=== PATIENT | female | born 1945 | race Caucasian/White ===

== ENCOUNTER → 2018-02-14 11:37 | Outpatient (CLI) | payer MEDICARE, OTHER, SELFPAY ==
[2018-02-14 12:38] LABS: BUN Creatinine Ratio 15.5 (6-22); Blood Urea Nitrogen 17 mg/dL (7-17); Estimated Glomerular Filt Rate 48.7 mL/min (>60)
== END ==
PROVIDERS: PCP Family Medicine; Visit Provider Orthopaedic Surgery
DX: Z01.812 Encounter for preprocedural laboratory examination (principal)
CPT/HCPCS: 36415; 82565; 84520

== ENCOUNTER → 2018-03-04 11:22 | Outpatient (CLI) | payer MEDICARE, OTHER, SELFPAY ==
[2018-03-04 12:34] LABS: Hematocrit 30.4 % (36-46); Hemoglobin 10.2 g/dL (12.0-16.0); Mean Corpuscular HGB Conc 33.6 % (30-36); Mean Corpuscular Hemoglobin 28.8 PG (26-34); Mean Corpuscular Volume 85.8 fL (80-100); Platelet Count 273 X10^3/uL (150-400); Red Blood Cell Count 3.54 X10^6/uL (4.0-5.2); Red Cell Distribution Width 16.3 % (11.6-14.8); White Blood Cell Count 6.6 X10^3/uL (4.5-11.0)
[2018-03-04 12:50] LABS: BUN Creatinine Ratio 15.8 (6-22); Blood Urea Nitrogen 19 mg/dL (7-17); Calcium 9.8 mg/dL (8.4-10.2); Carbon Dioxide 28 mmol/L (22-32); Chloride 95 mmol/L (98-107); Glucose 95 mg/dL (80-110); HEMOLYSIS < 15 (0-50); Sodium 129 mmol/L (137-145)
[2018-03-04 12:54] LABS: Potassium 5.4 mmol/L (3.4-5.1)
== END ==
PROVIDERS: PCP Family Medicine; Visit Provider Orthopaedic Surgery
DX: Z01.818 Encounter for other preprocedural examination (principal)
CPT/HCPCS: 36415; 80048; 85027

== ENCOUNTER 2018-03-13 13:15 | Day surgery (SDC) | payer MEDICARE, OTHER, SELFPAY ==
[2018-03-10 13:23] VITALS: BMI 22.4
[2018-03-13] VITALS (8 sets, daily range): BP systolic 119–148; BP diastolic 48–74; PULSE 75–93; RESP 12–18; TEMP 36.3–36.6; O2SAT 100; BMI 22.4
--- NOTE | 2018-03-13 | PATH_ITS ---
[facility] Accession Number: [id number] . 01 Material submitted: . L3 . 02 Diagnosis: Bone From Third Lumbar Vertebra: Fragments of benign bone, negative for neoplasm. V/03/17/2018 . 02 Electronically signed: . Joseph Mcnamara MD, Pathologist NPI- [id number] . 01 Gross description: . Received in formalin, labeled L3, are multiple intact and fragmented core biopsies of reyes hard bone (lengths-0.3 cm to 0.8 cm, diameters-up to 2.0 cm). Decalcified and entirely submitted in cassette A1. ([id number]) /[facility] . 02 Pathologist provided ICD-10: S32.039K . 02 CPT . 958872, [id number] Performed at: 01 [facility] [address] [id number] MD Elvin Pantoja MD Phone: [phone] Performed at: 02 [facility] [address] [address] [place], [place] [id number] MD Chris Rashid MD Phone: [phone]
--- NOTE | 2018-03-13 | DI.RAD.S_ITS ---
PROCEDURE: XR LUMBAR SPINE 2-3V INDICATIONS: Back pain. TECHNIQUE: 4 intraoperative fluoroscopic views of the lumbar spine were acquired. COMPARISON: [facility], , -SPINE 2-3 VIEWS, 08/01/2017, 8:29. FINDINGS: Bones: Intraoperative fluoroscopic images of lumbar spine shows injection of what appears to be cement material within L3 vertebral body. Posterior fusion hardware at L4-S1 levels are again seen. Soft tissues: Overlying bowel gas pattern is normal. No suspicious soft tissue calcifications. IMPRESSION: Intraoperative fluoroscopic images show vertebral plasty at L3 level. Dictated by: Maximino Barrientos M.D. on 03/13/2018 at 16:57 Approved by: Maximino Barrientos M.D. on 03/13/2018 at 17:00
[2018-03-13] MEDS: LACTATED RINGERS 1,000 ML 42 ML IV (13:56)
[2018-03-13 14:08] LABS: Blood Urea Nitrogen 18 mg/dL (7-17); Calcium 10.2 mg/dL (8.4-10.2); Carbon Dioxide 24 mmol/L (22-32); Chloride 98 mmol/L (98-107); Estimated Glomerular Filt Rate 54.3 mL/min (>60); Glucose 110 mg/dL (80-110); HEMOLYSIS < 15 (0-50); Potassium 4.9 mmol/L (3.4-5.1); Sodium 130 mmol/L (137-145)
--- NOTE | 2018-03-13 15:39 | PM.PREOP ---
Pre-operative Note Interval Note Pre-op Check: Yes History & Physical Reviewed by Physician and Yes Exam Performed Changes: No
[2018-03-13] MEDS: CEFAZOLIN 2 GM/100 ML FROZ.PIGGY IV (15:57)
--- NOTE | 2018-03-13 16:06 | SUR.OPER ---
Prone on spine table, head in foam head support, padded chest and pelvic supports, gel pad at knees, lower legs supported by pillows; nipples, genitalia and toes free of pressure, arms secured on foam padded arm boards at <90 degrees abduction. Tape over blanket at thigh secured to table.
[2018-03-13] MEDS: BUPIVACAINE 0.25% W/ EPI VIAL 50 ML INJ (16:13)
--- NOTE | 2018-03-13 16:37 | P.OP_ITS ---
Operative Date/Time/Diagnoses Date of procedure: 03/13/18 Time of procedure: 16:36 Pre-op diagnosis: L3 compression fracture Back pain Post-op diagnosis: same Procedure & Clinicians Procedure: L3 kyphoplasty Same procedure as scheduled: Yes Indications: [age] year old female with intractable pain from an L3 compression fracture as well as a family history of multiple myeloma. She had failed conservative management and requested operative intervention. Risks and benefits of surgery were discussed and appropriate consents were obtained. Surgeon: Luis Angel Phan Click Yes if Unassisted: Yes Anesthesia Type: General Operative Notes Findings: Very sclerotic bone Closure Type: primary Specimen(s): other (L3 vertebral biopsy) Estimated Blood Loss (mL): 1 Procedure in detail: The patient was brought to the operating room and intubated on the table. They were then rolled over to the well-padded prone position. Time-out was performed. We confirmed positioning with two fluoroscopy views. The back was prepped and draped in the standard sterile fashion. Preoperative antibiotics were given. Using fluoroscopic guidance, the planned incision site was infiltrated with Marcaine with epinephrine and injected down to the entry site of the left pedicle of L3. A small stab incision was made and we advanced a Jamshiedi needle down the left pedicle into the vertebral body. This was densely sclerotic bone and we had used a mallet to advanced down the pedicle. A bone biopsy was harvested from this and sent to pathology. We tried to advance the D fine osteotome, however it would not open up inside the vertebral body. I then used the drill and again tried the osteotome but would not open further. A separate stab incision was made on the right side after injecting Marcaine. I then went down the L3 pedicle on the right also needing a mallet for the hard sclerotic bone. We harvested another bone biopsy from this and used the drill and then tried opening up the osteotome but it would barely move. We then began injecting the cement. This was done with frequent fluoroscopy imaging. Minimal cement came through the left side and we immediately had high- pressure were backed up and would not advance further. I then went over to the right side injected. This tracked along the undersurface of the endplate but then appeared to come up through into the disc space and we stop injecting. I then redirected my cannula and we drilled to go more inferior and injected a little bit more but it would not advance any cement due to the sclerotic bone. At this point I was satisfied that we had her bone biopsies. I did not think that any further injection would make a difference. Trocars removed. Final x- rays were taken. The wound was cleaned. Steri-Strips and sterile dressing were placed. Patient was rolled over, extubated, and brought to recovery without complications. Complications: none Condition: stable Disposition: PACU Plan for aftercare: Outpatient. Activity as tolerated. Await bone biopsy results.
[2018-03-13] MEDS: MEPERIDINE 50 MG/ML 12.5 MG IV (16:59)
--- NOTE | 2018-03-13 17:01 | SUR.PHASEI ---
c/o shivering medicated per orders. with improvement.
--- NOTE | 2018-03-13 18:14 | SUR.PHASEII ---
[id number] Report received from APOLINAR Ozuna. Pt ambulated from bathroom to wheelchair, gait steady. Denied pain. VS taken. Condition stable. Pt's family member held the discharge instructions.
--- NOTE | 2018-03-13 18:15 | SUR.PHASEII ---
Taken our by varnish melter and Katarina.
== END 2018-03-13 17:32 | disposition home or self-care (01) ==
PROVIDERS: Anesthesiology; PCP Family Medicine; Visit Provider Orthopaedic Surgery
PROC: (CPT 22514; principal; 2018-03-13 15:00)
DX: S32.030G Wedge compression fracture of third lumbar vertebra, subsequent encounter for fracture with delayed healing (principal); M54.9 Dorsalgia, unspecified; S39.012A Strain of muscle, fascia and tendon of lower back, initial encounter; M79.659 Pain in unspecified thigh; M41.9 Scoliosis, unspecified; Z98.1 Arthrodesis status; Z87.891 Personal history of nicotine dependence; Z95.0 Presence of cardiac pacemaker
CPT/HCPCS: 22514; 72100; 76001; 80048; 88305; 88311; C1776; J0330; J0690; J1100; J2175; J2405; J2704; J3010

== ENCOUNTER → 2018-06-09 11:38 | Outpatient (CLI) | payer MEDICARE, OTHER, SELFPAY ==
[2018-06-09 12:24] LABS: Hematocrit 29.8 % (36-46)
[2018-06-09 13:32] LABS: BUN Creatinine Ratio 14.6 (6-22); Blood Urea Nitrogen 19 mg/dL (7-17); Calcium 10.5 mg/dL (8.4-10.2); Carbon Dioxide 26 mmol/L (22-32); Chloride 97 mmol/L (98-107); Estimated Glomerular Filt Rate 40.2 mL/min (>60); Glucose 105 mg/dL (80-110); HEMOLYSIS < 15 (0-50); Sodium 133 mmol/L (137-145)
[2018-06-09 13:36] LABS: Potassium 5.7 mmol/L (3.4-5.1)
[2018-06-09 15:39] LABS: Creatinine Urine Random 70.2 mg/dL; Protein (Total) Urine Random 9 mg/dL (0-12); Protein Creatinine Ratio Urine 0.12 GRAM/24H
[2018-06-12 14:59] LABS: Parathyroid Hormone Int 66 pg/mL (14-64)
== END ==
PROVIDERS: Family Provider Student in an Organized Health Care Education/Training Program; PCP Student in an Organized Health Care Education/Training Program; Visit Provider Orthopaedic Surgery
DX: Z01.818 Encounter for other preprocedural examination (principal); N05.9 Unspecified nephritic syndrome with unspecified morphologic changes; R80.9 Proteinuria, unspecified; D64.9 Anemia, unspecified; N25.81 Secondary hyperparathyroidism of renal origin
CPT/HCPCS: 36415; 80048; 82565; 82570; 83970; 84156; 84520; 85014; 85018

== ENCOUNTER → 2018-06-25 11:54 | Outpatient (CLI) | payer MEDICARE, OTHER, SELFPAY ==
[2018-06-25 12:45] LABS: BUN Creatinine Ratio 17.3 (6-22); Blood Urea Nitrogen 19 mg/dL (7-17); Calcium 9.8 mg/dL (8.4-10.2); Carbon Dioxide 24 mmol/L (22-32); Chloride 95 mmol/L (98-107); Estimated Glomerular Filt Rate 48.7 mL/min (>60); Glucose 105 mg/dL (80-110); HEMOLYSIS < 15 (0-50); Potassium 3.9 mmol/L (3.4-5.1); Sodium 133 mmol/L (137-145)
== END ==
PROVIDERS: Family Provider Student in an Organized Health Care Education/Training Program; PCP Student in an Organized Health Care Education/Training Program; Visit Provider Student in an Organized Health Care Education/Training Program
DX: N05.9 Unspecified nephritic syndrome with unspecified morphologic changes (principal)
CPT/HCPCS: 36415; 80048

== ENCOUNTER → 2018-08-04 10:14 | Outpatient (CLI) | payer MEDICARE, OTHER, SELFPAY ==
[2018-08-04 11:11] LABS: BUN Creatinine Ratio 13.3 (6-22); Blood Urea Nitrogen 16 mg/dL (7-17); Calcium 10.1 mg/dL (8.4-10.2); Carbon Dioxide 26 mmol/L (22-32); Chloride 98 mmol/L (98-107); Cholesterol 147 mg/dL (140-199); Estimated Glomerular Filt Rate 43.9 mL/min (>60); Glucose 103 mg/dL (80-110); HDL Cholesterol 69 mg/dL (40-60); HEMOLYSIS < 15 (0-50); LDL Cholesterol Calculated 61 mg/dL (<100); Potassium 5.1 mmol/L (3.4-5.1); Sodium 134 mmol/L (137-145); Triglycerides 85 mg/dL (35-150)
== END ==
PROVIDERS: Family Provider Student in an Organized Health Care Education/Training Program; PCP Student in an Organized Health Care Education/Training Program; Visit Provider Internal Medicine Interventional Cardiology
DX: I25.2 Old myocardial infarction (principal); E78.5 Hyperlipidemia, unspecified; I77.89 Other specified disorders of arteries and arterioles
CPT/HCPCS: 36415; 80048; 80061

== ENCOUNTER 2018-10-02 09:34 | Inpatient (IN) | payer MEDICARE, OTHER, SELFPAY ==
[2018-09-26 13:57] VITALS: BMI 20.1
[2018-10-02] VITALS (14 sets, daily range): BP systolic 111–138; BP diastolic 53–71; PULSE 76–89; RESP 15–17; TEMP 35.7–36.2; O2SAT 97–100; BMI 20.1
--- NOTE | 2018-10-02 | DI.RAD.S_ITS ---
PROCEDURE: XR LUMBAR SPINE MIN 4V INDICATIONS: L2-3, L3-4 XLIF L1 KYPHOPLASTY TECHNIQUE: 4 views of the lumbar spine were acquired. COMPARISON: [facility], CT, CT ABDOMEN PELVIS WITH CONTRAST, 09/10/2018, 10:12. [facility], CR, XR LUMBAR SPINE 2 OR 3 VIEWS, 06/02/2018, 8:42. [facility], CR, XR LUMBAR SPINE 2-3V, 03/13/2018, 15:09. [facility], CR, L-SPINE 2-3 VIEWS, 08/01/2017, 8:29. FINDINGS: Bones: Previously there appeared to have been transverse pedicle screws and vertical fixation rods spanning L4-S1. A prior vertebroplasty procedure has been documented. The current examination shows no vertebroplasty at L1, and transverse pedicle screws with vertical fixation rods crossing from L2-L5. An interbody disc prosthesis is seen at L5-S1, as was previously the case Soft tissues: Overlying bowel gas pattern is normal. No suspicious soft tissue calcifications. Oblique images: No pars defects. IMPRESSION: L1 kyphoplasty bone cement in place as a new finding. Revision as discussed above prior posterior spine fusion procedure. A previously present cage intervertebral L5-S1 disc prosthesis is again noted. No intervening disc prosthesis devices appear to have been placed at L2-3, L3-4, and L4-5. Dictated by: Tanner Rosales M.D. on 10/02/2018 at 17:17 Approved by: Tanner Rosales M.D. on 10/02/2018 at 17:25
[2018-10-02] MEDS: LACTATED RINGERS 1,000 ML 42 ML IV ×2 (10:20→14:48)
--- NOTE | 2018-10-02 11:09 | PM.PREOP ---
Pre-operative Note Interval Note History & Physical reviewed/Exam performed by Physician: Yes Changes to H&P: No
--- NOTE | 2018-10-02 12:26 | P.OP_ITS ---
Operative Date/Time/Diagnoses Date of procedure: 10/02/18 Time of procedure: 16:22 Pre-op diagnosis: Lumbar stenosis with radiculopathy Lumbar spondylolisthesis Post-op diagnosis: same Procedure & Clinicians Procedure: L2-3, L3-4 anterior fusion with cages L2-3, L3-4 posterior fusion. L2-4 posterior instrumentation placement iliac crest bone graft aspirate L3-4 left-sided laminectomy L1 kyphoplasty use of microscope placement of epidural catheter Same procedure as scheduled: Yes Indications: 73 year old female with intractable pain from progressive stenosis. They had failed conservative management and requested operative intervention. Risks and benefits of surgery were discussed and appropriate consents were obtained. Surgeon: Luis Angel Phan District Plant Supervisor: Radha Cabrales Anesthesia Type: General Operative Notes Findings: none Closure Type: primary Specimen(s): none sent Prosthetic devices, grafts, tissues, transplants, or devices: NuVasive XLIF cages and MAS Precept screws Estimated Blood Loss (mL): 20 Procedure in detail: Patient was brought to the operating room and intubated on the table. Time-out was performed. They were then rolled over to the lateral decubitus position with the [id number]. The table was bent and they were taped down in the correct position. X-rays were taken to confirm a true AP and lateral. Preoperative antibiotics were given. The left flank was prepped and draped in standard sterile fashion. Using fluoroscopy, a 3 cm incision was made above the iliac crest. We bluntly dissected down with Metzenbaum scissors and split the 3 abdominal muscle layers. We dissected out the retroperitoneal space and using finger guidance, brought our 1st dilator down to the psoas muscle. Using neuromonitoring and fluoroscopy, we placed it through the psoas onto the L3-4 disc space in an anterior position and gradually pulled the dilator posteriorly along the disc space. We placed our guidewire and measured our depth for the retractor. We then dilated with the next 2 dilators and then placed our retractor over the dilators. Position was confirmed with fluoroscopy and the retractor was locked down to the bar. We opened up the retractor and checked with neuro monitoring. We then placed the mary beth and again checked with neuro monitoring. The retractor was opened further and the ALL retractor was placed. An annulotomy was performed. We then performed a complete diskectomy with ring curette, pituitary, box osteotome. A Khan was advanced across the disc space under fluoroscopy to release the lateral annulus on the opposite side. We then used sequentially larger trials and confirmed under fluoroscopy. An XLIF cage was packed with Osteocel bone graft and impacted into the L3-4 disc space with fluoroscopy for the anterior fusion at this level. The wound was irrigated. The retractor was closed down. The mary beth was removed. We carefully removed the retractor with direct visualization to make sure there was no neurovascular or abdominal injury. We then went up to the L2-3 space. Again we used dilators and fluoroscopy to find our safe position. We placed our retractor and opened up. We performed an annulotomy. We passed the Khan elevator across and released the lateral annulus. We had used the offset instrumentation for this angled level and were pushing up against her inferior rib most of the time. We used the box osteotome to go across the disc space. The patient had a layer of kyphoplasty cement in the disc space from bony leakage and extravasation at her previous kyphoplasty. We rolled a break this up with the box osteotome and then could r emove some of it with the pituitaries but could not get all the way across where it clumped together. I felt that we could just leave this there. We then trialed and placed our next cage packed with bone graft for the anterior fusion at L2-3. The retractor was carefully removed with direct visualization. Final x-rays were taken. The muscle fascia was closed, superficial tissue was closed. The skin was closed. Sterile dressing was placed. The patient was then rolled over on the well-padded prone position on the Justin table. Using fluoroscopy for localization, we opened up her 2 previous incisions and extended them 4 cm cephalad. We dissected a muscle-splitting approach and came down to her previous hardware. The old set screws and rods were removed. We also removed the S1 screws bilaterally. We dissected through the soft tissue and expose the facet joints at L3-4, L2-3 and the lateral aspect of it at L1-2. We cleared off the transverse processes of L2, L3, and L4. These were decorticated with a bur. We then used fluoroscopy and neuro monitoring to place our screws on the left side. We percutaneously placed a Jamshidi needle down the left pedicles of L2 and L3. These were swapped out to guidewires, tapped and then the screws were placed over the guidewires. We cleared medially and exposed the L3 lamina on the left side. We then brought in the microscope. A laminectomy was performed at L3-4 on the left with a bur and Kerrison rongeurs. We carefully depressed the dura to reach to the opposite side and decompress the entire central canal. We cleared out th e neural foramen. This included a partial facetectomy. In the end the ball probe could be placed cephalad and caudally across to the opposite side in the foramen and everything was opened. The wound was copiously irrigated. We then measured a maksim and locked it down from L2 through L5. A small stab incision was made over the PSIS and a Jamshidi needle was placed into the iliac crest and several mL of bone marrow was aspirated. This was mixed with our locally harvested bone graft as well as the remaining Osteocel and placed in the posterolateral gutter for fusion at L2-3 and L3-4. The fascia was then closed. The epidural was then injected without resistance. An epidural catheter was primed with 4mL of 0.5% bupivacaine, 100 mcg fentanyl, 4 mg Duramorph, 1 mg Stadol. The dura was depressed under the cephalad lamina with a ball probe and the epidural catheter was gently advanced 6 cm cephalad. The catheter was pulled and we closed more over the fascia. We then went over to the right-hand side. We percutaneously placed our Jamshidi needles, guidewires, tapped and then placed our screws at L2 and L3 under fluoroscopic guidance with neuro monitoring. A maksim was placed from L2 through L5 and locked down. The wound was irrigated and the fascia was closed. We then began our kyphoplasty at L1. This was a prophylactic kyphoplasty as the patient is at a very high risk for proximal junctional kyphosis as shown previously with an adjacent L3 compression fracture above her previous fusion from L3 L4 through S1. We then used fluoroscopy to make a small stab incision over the right L1 pedicle. A Jamshidi needle was advanced down the pedicle under fluoroscopic guidance. We then placed the D-Fine osteotome and opened it up and created a void inside the vertebral body going past the midline. We then began injecting our cement under fluoroscopic guidance. Once we had good fill of the L1 vertebral body, the trocar was removed and final x-rays were taken. Vancomycin powder was placed in the wounds. The superficial and skin were closed. Sterile dressing was placed. The patient was then rolled over, extubated, brought to the recovery room with no complications. Complications: none Condition: stable Disposition: PACU Plan for aftercare: Inpatient. Up with physical therapy.
[2018-10-02] MEDS: CEFAZOLIN 2 GM/100 ML FROZ.PIGGY IV ×2 (12:30→20:54)
--- NOTE | 2018-10-02 13:16 | SUR.OPER ---
Position 1: Right lateral on padded OR table. Head on pillow, gel axillary roll, pillow to support left arm. Legs flexed, pillows between legs, gel pad under down leg and ankle. Multiple passes of 3 inch cloth tape across shoulder, hip, upper and lower legs to secure patient on OR table. Position 2: Prone on spine table, head in foam head support, padded chest and pelvic supports, gel pad at knees, lower legs supported by pillows; nipples, genitalia and toes free of pressure, arms secured on foam padded arm boards at <90 degrees abduction. Tape over blanket at thigh secured to table.
[2018-10-02] MEDS: SODIUM CHLORIDE 0.9% 1,000 ML, GENTAMICIN 80 MG IRR (13:28)
[2018-10-02] MEDS: VANCOMYCIN 1,000 MG VIAL 1000 MG TOP (13:30)
[2018-10-02] MEDS: THROMBIN (BOVINE) 5,000 UNIT VIAL 5000 UNIT TOP (13:30)
[2018-10-02] MEDS: BUPIVACAINE 0.5% (PF) 4 ML, MORPHINE-PF 4 MG, BUTORPHANOL 1 MG, fentaNYL 100 MCG INJ (13:31)
[2018-10-02] MEDS: HYDROMORPHONE 2 MG INJ 0.5 MG IV ×8 (17:13→17:55)
[2018-10-02] MEDS: HYDROMORPHONE 1 MG INJ 0.5 MG IV (20:37)
[2018-10-02] MEDS: DOCUSATE 100 MG CAPSULE PO (20:38)
[2018-10-02] MEDS: LACTATED RINGERS 1,000 ML 125 ML IV (20:38)
[2018-10-02] MEDS: METOPROLOL IR 50 MG TABLET PO (20:38)
[2018-10-02] MEDS: CELECOXIB 200 MG CAPSULE 400 MG PO (20:39)
[2018-10-02] MEDS: SENNOSIDES 8.6 MG TABLET 17.2 MG PO (20:39)
[2018-10-02] MEDS: AMLODIPINE 5 MG TABLET 10 MG PO (20:41)
[2018-10-02] MEDS: ATORVASTATIN 20 MG TABLET PO (20:41)
[2018-10-02] MEDS: OXYCODONE IR 5 MG TABLET 10 MG PO (23:19)
[2018-10-02] MEDS: POLYVINYL ALCOHOL DROPS 1 DROPS EYE-BOTH (23:20)
[2018-10-03] VITALS (7 sets, daily range): BP systolic 99–124; BP diastolic 41–55; PULSE 61–79; RESP 14–18; TEMP 36.3–36.7; O2SAT 96–100
[2018-10-03] MEDS: LACTATED RINGERS 1,000 ML 125 ML IV (02:17)
[2018-10-03] MEDS: OXYCODONE IR 5 MG TABLET 10 MG PO ×6 (02:18→20:49)
[2018-10-03] MEDS: CEFAZOLIN 2 GM/100 ML FROZ.PIGGY IV (04:51)
[2018-10-03] MEDS: PANTOPRAZOLE 40 MG TABLET PO (05:40)
[2018-10-03 06:24] LABS: Hematocrit 31.7 % (36-46); Hemoglobin 10.5 g/dL (12.0-16.0)
[2018-10-03 06:38] LABS: BUN Creatinine Ratio 15.7 (6-22); Blood Urea Nitrogen 11 mg/dL (7-17); Calcium 9.2 mg/dL (8.4-10.2); Carbon Dioxide 25 mmol/L (22-32); Chloride 96 mmol/L (98-107); Estimated Glomerular Filt Rate > 60.0 mL/min (>60); Glucose 156 mg/dL (80-110); HEMOLYSIS < 15 (0-50); Potassium 3.9 mmol/L (3.4-5.1); Sodium 129 mmol/L (137-145)
--- NOTE | 2018-10-03 08:04 | PM.PNPO.1 ---
Subjective Date Patient Seen: 10/03/18 Time Patient Seen: 08:04 Interval history: Pain is a 2 at rest. However much more noticeable with moving. Still in the back and into the lateral left thigh. Exam Vital Signs (past 8 hours): - 10/03/18 00:25 10/03/18 04:59 Pulse Rate 79 72 Respiratory Rate 16 14 Blood Pressure 115/55 L 111/53 L Pulse Oximetry 100 100 Oxygen Delivery Method Room Air Oxygen Flow Rate 0 Const Orientation: alert and oriented x3 Back/Spine/Pelvis Other: CDI. 5/5 motor both lower extremities Objective Labs Result Diagrams: 10/03/18 05:31 10/03/18 05:31 Labs: Laboratory Results - last 24 hr 10/03/18 10/03/18 05:31 05:31 Hgb 10.5 L Hct 31.7 L Sodium 129 L Potassium 3.9 Chloride 96 L Carbon Dioxide 25 BUN 11 Creatinine 0.70 Estimated GFR > 60.0 BUN/Creatinine Ratio 15.7 Glucose 156 H Calcium 9.2 Assessment & Plan Post-op Postoperative Procedures Operation Date: 10/02/18 11:15 Actual Procedures Side Surgeon p L2-3,L3-4 Anterior/Posterior Instru. fusion & bone graft, Left L3-4 Laminectomy & Discectomy Luis Angel Phan MD s L1 Kyphoplasty Luis Angel Phan MD stable postoperative day 1 after anterior-posterior fusion and laminectomy. Mobilize with physical therapy. Quality VTE Deep Vein Thrombosis/Pulmonary Embolism Present on Admission: No
[2018-10-03] MEDS: hydrOXYzine pamoate 25 MG CAPSULE PO ×4 (08:53→21:43)
[2018-10-03] MEDS: FUROSEMIDE 20 MG TABLET PO (08:54)
[2018-10-03] MEDS: METOPROLOL IR 50 MG TABLET PO ×2 (08:54→20:51)
[2018-10-03] MEDS: MULTIVITAMIN 1 TABLET 1 TAB PO (08:54)
[2018-10-03] MEDS: DOCUSATE 100 MG CAPSULE PO ×2 (08:54→20:52)
[2018-10-03] MEDS: ASPIRIN EC 81 MG TABLET PO (08:57)
--- NOTE | 2018-10-03 11:58 | OT.IP.EVAL ---
Current Diagnoses Scoliosis, unspecified (10/02/18) Intervertebral disc disorders with radiculopathy, lumbar region (10/02/18) Wedge compression fracture of third lumbar vertebra, subsequent encounter for fracture with delayed healing (10/02/18) Arthrodesis status (10/02/18) Surgery Performed Operation Date: 10/02/18 11:15 Actual Procedures p L2-3,L3-4 Anterior/Posterior Instru. fusion & bone graft, Left L3-4 Laminectomy & Discectomy - Luis Angel Phan MD s L1 Kyphoplasty - Luis Angel Phan MD Past Medical History (Last Updated 03/10/18 @ 13:38 by Nanda Morris, RN) CKD (chronic kidney disease), stage III (Acute) Generalized headaches (Acute) Hyponatremia (Acute) Iron deficiency anemia (Acute) Coronary artery disease (Chronic Unknown) GERD (gastroesophageal reflux disease) (Chronic Unknown) History of anemia (Chronic Unknown) Hyperlipemia (Chronic Unknown) Hypertension (Chronic Unknown) Osteoporosis (Chronic Unknown) Pacemaker (Chronic ~2015) Scoliosis (Chronic Unknown) Shingles (herpes zoster) polyneuropathy (Chronic Unknown) Spinal stenosis (Chronic Unknown) History of GI bleed (Resolved Unknown) Hx of fracture of arm (Resolved Unknown) Hx of myocardial infarction (Resolved 2005) Lymphoma (Resolved 1992) Surgical History (Last Updated 09/26/18 @ 14:12 by Nanda Morris, RN) History of lumbar surgery (Acute ~07/2017) Hx of kyphoplasty (Acute 03/13/18) History of abdominal surgery (Resolved 1991) History of back surgery (Resolved Unknown) History of lumpectomy of right breast (Resolved 1991) Hx of cataract surgery (Resolved 2005) Hx of hysterectomy (Resolved Unknown) Hx of partial mastectomy (Resolved Unknown) Occupational Therapy Inpatient Evaluation/Re-Eval M1 PT/OT-IP Prior Functional Status Start: 10/03/18 09:20 Freq: NEEDED Status: Active Protocol: Document 10/03/18 11:27 [facility] (Rec: 10/03/18 11:58 [facility] [id number]) Medical Review Prior Functional Status Medical History Reviewed Yes Diet/Fluid Consistency Regular Thin Liquids Communication Independent Mobility and Gait Pt stated use of FWW with 4 wheels at night due to unsteady on her feet otherwise holds to objects or meade. At times, pt states holds to daughter's arm at times. Activities of Daily Living and IADL's Pt states able to do all with increased time. Pt's daughter recently having to assist with grocery shopping, IADL's, and medical appointments. Social History Household Members none Living Arrangements House Number of Floors (Floors) Two Floors Number of Stairs To Enter/Railing? 3 stairs, bilateral rails with wide rails, only able to reach one side at a time. Home Environment Standard Height Toilet Walk in Shower Home Equipment Front Wheel Walker Shower Seat without Backrest Employment Status Retired Additional Social History Comment Pt adult daughter lives next door and daughter from [place] coming to assist and stay with her on Saturday through Saturday. Pt also states that she has cousins that can assist/stay as well and therefore always have someone available if needed. M2 OT-IP Current Condition Start: 10/03/18 09:20 Freq: Status: Active Protocol: Document 10/03/18 11:27 [facility] (Rec: 10/03/18 11:58 [facility] [id number]) Occupational Therapy Current Condition Current Condition Evaluation Date 10/03/18 Treatment Diagnosis Lumbar stenosis Diagnosis Onset Date 10/02/18 Post Operative Precautions Lumbar Precautions Log Roll No Twisting Limit Bending Lifting Restriction of 10 lbs Gait Belt above Incisional Area Weight Bearing Status Weight Bearing Status Weight Bear as Tolerated M3 OT- IP Subjective and Pain Start: 10/03/18 09:20 Freq: Status: Active Protocol: Document 10/03/18 11:27 [facility] (Rec: 10/03/18 11:58 [facility] [id number]) OT- Subjective Occupational Therapy Visit Type Type Initial Evaluation Visit Start Time 09:15 Visit Stop Time 10:10 Total Visit Minutes 55 Occupational Therapy Visit Comments Patient Comments Pt agreeable to get up. OT Pain Assessment Pain When Pain Assessed During Mobility Pain Present Pain Present Pain Reported Location Lower Back Intensity 3 Scale Used Numeric (1 - 10) M4 OT- IP ADL's Start: 10/03/18 09:20 Freq: Status: Active Protocol: Document 10/03/18 11:27 [facility] (Rec: 10/03/18 11:58 [facility] [id number]) OT ADL-Dressing General Eval Lower Body Dressing Ability Maximum Assistance Comments OT Dressing Comments Assist for compression stocking and lace up shoes. OT ADL-Toileting Comments OT Toileting Comments Pt still has catheter in. M5 OT- IP IADL's Start: 10/03/18 09:20 Freq: Status: Active Protocol: Document 10/03/18 11:27 [facility] (Rec: 10/03/18 11:58 [facility] [id number]) OT-Instrumental Activities of Daily Living Home Safety Awareness Home Safety Comments Pt states will have family assist to for all IADL needs. M6 OT- IP Functional Cognition Start: 10/03/18 09:20 Freq: Status: Active Protocol: Document 10/03/18 11:27 [facility] (Rec: 10/03/18 11:58 [facility] [id number]) Cognitive Factors Limiting Selfcare Function Cognitive Ability Level of Alertness Alert Patient Orientation Name Place Situation Attention Span Ability Capable of Focused Attention Capable of Sustained Attention Ability to Follow Commands Able to Follow One Step Commands Safety Awareness Underestimates Need for Assistance Cognitive Comments Cognitive Assessment Comments Pt not able to recall all back precautions, after education able to recall all back precautions. OT- Vision and Hearing OT- Hearing Assessment OT- Hearing Assessment WFL OT- Vision Assessment Visual Acuity WFL M7 OT- IP Mobility and Balance Start: 10/03/18 09:20 Freq: Status: Active Protocol: Document 10/03/18 11:27 [facility] (Rec: 10/03/18 11:58 [facility] [id number]) OT- Bed Mobility Assessment Rolling Type of Rolling Roll to Left Level of Assistance Minimal Assistance Bedrails Supine to Sit Supine to Sit Assist Minimal Assistance Scooting Scooting to Edge of Bed Minimal Assistance OT-Transfer Assessment Sit to and From Stand Sit to and from Stand Minimal Assistance Transfers Transfer Ability Minimal Assistance Technique Transfer Destination Chair Transfer Technique Stand Step Pivot Devices Transfer Assistive Devices Gait Belt Front Wheeled Walker Comments Mobility Comments Pt STEPHANIA to help from sit to stand and cues to push up from and bed and recliner to stand to FWW. Pt BP 127/54 supine, sitting 113/51, after transfer 101/45 and now sitting 113/47 . OT- Balance Assessment Sitting Balance and Reactions Static Sitting Balance Ability Normal Dynamic Sitting Balance Ability Good Standing Balance and Reactions Static Standing Balance Ability Good M8 OT- IP Objective Assessments Start: 10/03/18 09:20 Freq: Status: Active Protocol: Document 10/03/18 11:27 [facility] (Rec: 10/03/18 11:58 [facility] [id number]) OT Gross Range of Motion Upper Extremity Range of Motion Assessment Within Functional Limits OT-Muscle Tone Assessment Muscle Tone WNL Yes M9 OT- IP Assessment and Plan Start: 10/03/18 09:20 Freq: Status: Active Protocol: Document 10/03/18 11:27 [facility] (Rec: 10/03/18 11:58 [facility] [id number]) OT Summary Assessment and Plan Potential Rehabilitation Potential Good Analytic Complexity at Evaluation Low Summary OT Impairments Pain Strength Balance Functional Mobility Dressing Toileting Bathing Toilet Transfers Shower Transfers Progress Towards Goals Progressing Toward Goals Assessment Summary Pt low complexity and main barrier is steps and now needing assist for LB dressing as wears compression stocking and lace up shoes. Pt has supportive family that can stay with her and provide 24/7 assist if needed. Pt when medically stable suggested to go home with assist. Goals Grooming Goal Independent Dressing Goal Moderate Assistance Toileting Goal Standby Assistance Bathing Goal Contact Guard Assistance Toilet Transfer Goal Independent Shower Transfer Goal Contact Guard Assistance Patient/Caregiver Education Goal Demonstrate Post-Op Precautions Caregiver Independent Assisting Patient Days to Meet Goals 4 Frequency of Treatment Frequency Of Treatment Once a Day Treatment Plan OT Treatment Plan ADL Training Functional Mobility Patient/Family Education Discharge Planning Other Treatment Recommendations and Next Practice LB dressing and Treatment Focus shower if appropriate. 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
--- NOTE | 2018-10-03 12:02 | PT.IIE ---
Current Diagnoses Scoliosis, unspecified (10/02/18) Intervertebral disc disorders with radiculopathy, lumbar region (10/02/18) Wedge compression fracture of third lumbar vertebra, subsequent encounter for fracture with delayed healing (10/02/18) Arthrodesis status (10/02/18) Surgery Performed Operation Date: 10/02/18 11:15 Actual Procedures p L2-3,L3-4 Anterior/Posterior Instru. fusion & bone graft, Left L3-4 Laminectomy & Discectomy - Luis Angel Phan MD s L1 Kyphoplasty - Luis Angel Phan MD Surgical History (Last Updated 09/26/18 @ 14:12 by Nanda Morris, RN) History of lumbar surgery (Acute ~07/2017) Hx of kyphoplasty (Acute 03/13/18) History of abdominal surgery (Resolved 1991) History of back surgery (Resolved Unknown) History of lumpectomy of right breast (Resolved 1991) Hx of cataract surgery (Resolved 2005) Hx of hysterectomy (Resolved Unknown) Hx of partial mastectomy (Resolved Unknown) Medical History (Last Updated 03/10/18 @ 13:38 by Nanda Morris, RN) CKD (chronic kidney disease), stage III (Acute) Generalized headaches (Acute) Hyponatremia (Acute) Iron deficiency anemia (Acute) Coronary artery disease (Chronic Unknown) GERD (gastroesophageal reflux disease) (Chronic Unknown) History of anemia (Chronic Unknown) Hyperlipemia (Chronic Unknown) Hypertension (Chronic Unknown) Osteoporosis (Chronic Unknown) Pacemaker (Chronic ~2016) Scoliosis (Chronic Unknown) Shingles (herpes zoster) polyneuropathy (Chronic Unknown) Spinal stenosis (Chronic Unknown) History of GI bleed (Resolved Unknown) Hx of fracture of arm (Resolved Unknown) Hx of myocardial infarction (Resolved 2005) Lymphoma (Resolved 1992) Physical Therapy Inpatient Evaluation/Re-Eval M1 PT/OT-IP Prior Functional Status Start: 10/03/18 09:20 Freq: NEEDED Status: Active Protocol: Document 10/03/18 11:27 [facility] (Rec: 10/03/18 11:58 [facility] [id number]) Medical Review Prior Functional Status Medical History Reviewed Yes Diet/Fluid Consistency Regular Thin Liquids Communication Independent Mobility and Gait Pt stated use of FWW with 4 wheels at night due to unsteady on her feet otherwise holds to objects or meade. At times, pt states holds to daughter's arm at times. Activities of Daily Living and IADL's Pt states able to do all with increased time. Pt's daughter recently having to assist with grocery shopping, IADL's, and medical appointments. Social History Household Members none Living Arrangements House Number of Floors (Floors) Two Floors Number of Stairs To Enter/Railing? 3 stairs, bilateral rails with wide rails, only able to reach one side at a time. Home Environment Standard Height Toilet Walk in Shower Home Equipment Front Wheel Walker Shower Seat without Backrest Employment Status Retired Additional Social History Comment Pt adult daughter lives next door and daughter from [place] coming to assist and stay with her on Saturday through Saturday. Pt also states that she has cousins that can assist/stay as well and therefore always have someone available if needed. M1 PT/OT-IP Prior Functional Status Start: 10/03/18 11:38 Freq: NEEDED Status: Active Protocol: Document 10/03/18 10:20 [facility] (Rec: 10/03/18 12:02 [id number]) M2 PT-IP Current Condition Start: 10/03/18 11:38 Freq: NEEDED Status: Active Protocol: Document 10/03/18 10:20 [facility] (Rec: 10/03/18 12:02 [id number]) Physical Therapy Current Condition Current Condition Evaluation Date 10/03/18 Treatment Diagnosis L2-L4 ant/post instru.fusion, bone graft, impaired gait, muscle weakness Onset Date 10/02/18 Precautions Lumbar Precautions Log Roll No Twisting Limit Bending Lifting Restriction of 10 lbs Gait Belt above Incisional Area Weight Bearing Status Weight Bearing Status Weight Bear as Tolerated M3 PT-IP Subjective Start: 10/03/18 11:38 Freq: NEEDED Status: Active Protocol: Document 10/03/18 10:20 [facility] (Rec: 10/03/18 12:02 [email or web address]) Subjective Physical Therapy Visit Type Type Initial Evaluation Visit Start Time 10:20 Visit Stop Time 10:50 Total Visit Minutes 30 Notes Pt just finished with OT session and c/o nausea. B compression stockings on B LEs Number of PERIOPERATIVE EDUCATOR Visits 0 Physical Therapy Visit Comments Patient Comments Pt agreeable to mobilize with PT Patient Goals To return home Therapy Pain Assessment Pain Present Pain Present Denied Pain M4 PT-IP Mobility and Gait Start: 10/03/18 11:38 Freq: NEEDED Status: Active Protocol: Document 10/03/18 10:20 (Rec: 10/03/18 12:02 [id number]) PT-Transfer Assessment Sit to and From Stand Sit to and from Stand Minimal Assistance Use of Upper Extremities Equipment Transfer Assistive Device Gait Belt Front Wheeled Walker Orthotic/Prosthetic Devices or Brace: No Transfers Transfer Destination Bed Chair Transfer Technique Stand Step Pivot Transfer Ability Level of Assist Contact Guard Assistance 1 Person Assistance Use of Upper Extremities Comments Mobility Comments BP before session= 114/80 post session = 118/62 Pt up in chair upon assessment . Pt stood up from bedside low chair with CGA and required cues to place hands on chair to push off. She returned to chair after gait training and able to use hip hinge pattern to stand to sit. Gait Assessment Gait Gait Assistance Required: Contact Guard Assist Distance (Feet) 150 Able to Maintain Weight Bearing Status Yes During Gait Assistive Devices Assistive Device Gait Belt Front Wheeled Walker Orthotic/Prosthetic Devices or Brace: No Gait Deviations General Gait Pattern Decreased Stride Length Decreased Feet Clearance Flexed Trunk Factors Limiting Gait Function Factors Limiting Gait Function Decreased Activity Tolerance Decreased Strength Limited Range of Motion Pain Comments Gait Comments Pt amb from bedside chair to hallway with FWW CGA. Pt presented decreased feet clearance and stride length, along with slight flexed knee and trunk posture. Required cues to facilitate upright posture. Pt also c/o slight fatigue and requested to return to chair for rest. Stair Climbing Assessment Comments Stair Climbing Comments did not attempt due to fatigue PT-Balance Assessment Sitting Balance and Reactions Static Sitting Balance Ability Normal Dynamic Sitting Balance Ability Normal Standing Balance and Reactions Static Standing Balance Ability Good Dynamic Standing Balance Ability Fair Device Used FWW M5 PT-IP Objective Assessments Start: 10/03/18 11:38 Freq: NEEDED Status: Active Protocol: Document 10/03/18 10:20 (Rec: 10/03/18 12:02 [id number]) Orientation Orientation/Cognition Level of Alertness Alert Orientation Name Age Birthday Month Date Year Day of Week Place Situation Language Function Ability No Deficits Noted Safety Awareness Understands Safety Issues Memory Description No Deficits Noted Gross Range of Motion Upper Extremity ROM Assessment Within Functional Limits Lower Extremity ROM Assessment Within Functional Limits Strength Upper Extremity Strength Assessment Within Functional Limits Lower Extremity Strength Assessment Within Functional Limits Coordination Assessment Gross Coordination Gross Coordination WNL Sensation Assessment Sensation Gross Sensation WNL Light Touch Intact Proprioception (Position) Intact Muscle Tone Muscle Tone WNL Yes M6 PT-IP Treatment Start: 10/03/18 11:38 Freq: NEEDED Status: Active Protocol: Document 10/03/18 10:20 [facility] (Rec: 10/03/18 12:02 [facility] [id number]) Physical Therapy Treatment Exercises Exercises Ankle Pumps Gluteal Sets Quad Sets Education Education Provided Precautions Weight Bearing Status Post-Op Packet Safety M7 PT-IP Assessment and Plan Start: 10/03/18 11:38 Freq: NEEDED Status: Active Protocol: Document 10/03/18 10:20 [facility] (Rec: 10/03/18 12:02 [id number]) PT Summary Assessment and Plan Potential Rehabilitation Potential Good Status of Condition at Evaluation Stable Summary Impairments Pain ROM Strength Bed Mobility Transfers Gait Activity Tolerance Assessment Summary Pt is a pleasant 73yo female POD#2 L2-L4 ant/post instru. fusion. Upon assessment, pt was able to recall 3/3 precautions and has good understanding of her current condition and rehab/postop guidelines. Pt was able to transfer and amb with overall CGA with FWW. Pt presented flexed trunk and knees posture during amb and required cues to maintain upright posture. Pt denies pain and nausea after session. Pt has to reach rehab goals prior to d/c home safely since she has ADI and flight of stair in the house, despite pt has dtr's assistance. Goals Bed Mobility Goal Independent Transfer Goal Independent Front Wheeled Walker Four Wheeled Walker Gait Goal Independent Front Wheel Walker Four Wheel Walker Gait Distance 300 Other Goals climb 3 steps x 4 sets R/L rail Days to Meet Goals 3 Frequency of Treatment Frequency Of Treatment Twice a Day Treatment Plan Physical Therapy Treatment Plan Bed Mobility Training Transfer Training Gait Training Therapeutic Exercise Post Op Education Discharge Planning Hot or Cold Pack Other Recommendations and Next Treatment transfer and gait training as Focus pelon attempt stair climbing with R/ L railing Recommendations To Nursing Amount of Assist Needed 1 Person Assist Discharge Recommendations PT Discharge Recommendations Home with Assistance Equipment Needed for Home Before 4ww since pt's 4ww is a Discharge modified 4ww from FWW
--- NOTE | 2018-10-03 12:36 | CM.IDA ---
Discharge Planning/Care Management CM Discharge Assessment Start: 10/03/18 12:29 Freq: Status: Active Protocol: Document 10/03/18 12:29 [facility] (Rec: 10/03/18 12:36 [facility] [id number]) Discharge Planning Assessment Assigned Bass String Winder CLARA Faith DPOA/Assigned Designee Name Teresa Donovan, dtr Contact Information [phone] Advance Directives? Yes Advance Directives on File No History Provided By Patient Family Member Significant Other Prior Living Arrangements House Household Members none Comment Pt's adult dtr lives next door , cousins live nearby, and another dtr coming from [place] to assist. Type of transporation used prior to Relies on Others admit Independent with ADL's No Is patient alert and oriented? Yes Needs Assistance With Bathing Managing Medications Home Chores / Shopping Comment Uses AD at night d/t unsteadiness. Barriers to Discharge No Comment Pt POD#1 from spinal surgery w / Dr Phan. Payer: Medicare / Commerical Insurance. Reviewed chart, PT/OT have assessed and have recommended a return home w/family to assist. No barriers found at this time to pt's safe return home w/ outpt f/u per Dr Potter's orders. This NANNY/HOUSEHOLD MANAGER available if DC needs or concerns arise. CLARA Pérez Discharge Plan Home Transportation Arrangement Family Referrals Initiated None needed Review Status In Process
[2018-10-03] MEDS: ACETAMINOPHEN 325 MG TABLET 650 MG PO ×2 (13:37→19:38)
--- NOTE | 2018-10-03 15:18 | PT.IPTN ---
Current Diagnoses Scoliosis, unspecified (10/02/18) Intervertebral disc disorders with radiculopathy, lumbar region (10/02/18) Wedge compression fracture of third lumbar vertebra, subsequent encounter for fracture with delayed healing (10/02/18) Arthrodesis status (10/02/18) Surgery Performed Operation Date: 10/02/18 11:15 Actual Procedures p L2-3,L3-4 Anterior/Posterior Instru. fusion & bone graft, Left L3-4 Laminectomy & Discectomy - Luis Angel Phan MD s L1 Kyphoplasty - Luis Angel Phan MD Physical Therapy Treatment Note M2 PT-IP Current Condition Start: 10/03/18 11:38 Freq: NEEDED Status: Active Protocol: Document 10/03/18 10:20 HH (Rec: 10/03/18 12:02 [email or web address]) Physical Therapy Current Condition Current Condition Evaluation Date 10/03/18 Treatment Diagnosis L2-L4 ant/post instru.fusion, bone graft, impaired gait, muscle weakness Onset Date 10/02/18 Precautions Lumbar Precautions Log Roll No Twisting Limit Bending Lifting Restriction of 10 lbs Gait Belt above Incisional Area Weight Bearing Status Weight Bearing Status Weight Bear as Tolerated M3 PT-IP Subjective Start: 10/03/18 11:38 Freq: NEEDED Status: Active Protocol: Document 10/03/18 14:30 HH (Rec: 10/03/18 15:18 [email or web address]) Subjective Physical Therapy Visit Type Type Treatment Note Visit Start Time 14:30 Visit Stop Time 14:50 Total Visit Minutes 15 Physical Therapy Visit Comments Patient Comments Pt got waken up after a nap. Willing to mobilize with PT. Therapy Pain Assessment Pain When Pain Assessed During Mobility Pain Present Pain Present Pain Reported Location Lower Back Intensity 5 Scale Used Numeric (1 - 10) Description Acute M4 PT-IP Mobility and Gait Start: 10/03/18 11:38 Freq: NEEDED Status: Active Protocol: Document 10/03/18 14:30 HH (Rec: 10/03/18 15:18 HH [email or web address]) PT-Bed Mobility Assessment Rolling Type of Rolling Log Rolling Level of Assist Contact Guard Assistance Supine to Sit Supine to Sit Contact Guard Assistance Bedrails Scooting Scooting to Edge of Bed Contact Guard Assistance PT-Transfer Assessment Sit to and From Stand Sit to and from Stand Contact Guard Assistance Minimal Assistance Use of Upper Extremities Equipment Transfer Assistive Device Gait Belt Front Wheeled Walker Orthotic/Prosthetic Devices or Brace: No Transfers Transfer Destination Bed Chair Transfer Technique Stand Step Pivot Transfer Ability Level of Assist Contact Guard Assistance 1 Person Assistance Use of Upper Extremities Comments Mobility Comments Pt log roll to L side and sat up EOB with CGA. Pt stood up with min A at first and B knee buckled but was able to recover immediately with UE support on therapist. Pt was able to transfer to w/c with FWW CGA x 2 Gait Assessment Comments Gait Comments Pt did not want to amb this pm due to pain but willing to do stair training Stair Climbing Assessment Evaluation Level of Assist On Stairs Contact Guard Assistance Devices Stair Climbing Assistive Devices Left Railing Right Railing Technique/Endurance Stair Climbing Direction Ascend and Descend Stair Climbing Technique Step Over Step Step to Step Number of Steps Climbed 3 Query Text: Stair Climbing Set # Repetitions (reps) 2 Comments Stair Climbing Comments step over during ascend and step to during descend M5 PT-IP Objective Assessments Start: 10/03/18 11:38 Freq: NEEDED Status: Active Protocol: Document 10/03/18 10:20 HH (Rec: 10/03/18 12:02 [email or web address]) Orientation Orientation/Cognition Level of Alertness Alert Orientation Name Age Birthday Month Date Year Day of Week Place Situation Language Function Ability No Deficits Noted Safety Awareness Understands Safety Issues Memory Description No Deficits Noted Gross Range of Motion Upper Extremity ROM Assessment Within Functional Limits Lower Extremity ROM Assessment Within Functional Limits Strength Upper Extremity Strength Assessment Within Functional Limits Lower Extremity Strength Assessment Within Functional Limits Coordination Assessment Gross Coordination Gross Coordination WNL Sensation Assessment Sensation Gross Sensation WNL Light Touch Intact Proprioception (Position) Intact Muscle Tone Muscle Tone WNL Yes M6 PT-IP Treatment Start: 10/03/18 11:38 Freq: NEEDED Status: Active Protocol: Document 10/03/18 10:20 HH (Rec: 10/03/18 12:02 [email or web address]) Physical Therapy Treatment Exercises Exercises Ankle Pumps Gluteal Sets Quad Sets Education Education Provided Precautions Weight Bearing Status Post-Op Packet Safety M7 PT-IP Assessment and Plan Start: 10/03/18 11:38 Freq: NEEDED Status: Active Protocol: Document 10/03/18 14:30 HH (Rec: 10/03/18 15:18 [email or web address]) PT Summary Assessment and Plan Summary Impairments Pain ROM Strength Bed Mobility Transfers Gait Activity Tolerance Assessment Summary Pt c/o increased pain this pm and fatigue. Pt negotiated 2 sets of 3 steps with B rails CGA safely. But she did buckle at her knees during sit to stand from EOB for the 1st attempt but able to recover with UE support. Pt has to reach rehab goals prior to d/c home safely since she has ADI and flight of stair in the house, despite pt has dtr's assistance. Goals Bed Mobility Goal Independent Transfer Goal Independent Front Wheeled Walker Four Wheeled Walker Gait Goal Independent Front Wheel Walker Four Wheel Walker Gait Distance 300 Other Goals climb 3 steps x 4 sets R/L rail Days to Meet Goals 3 Frequency of Treatment Frequency Of Treatment Twice a Day Treatment Plan Physical Therapy Treatment Plan Bed Mobility Training Transfer Training Gait Training Therapeutic Exercise Post Op Education Discharge Planning Hot or Cold Pack Other Recommendations and Next Treatment transfer and gait training as Focus pelon attempt stair climbing with R/ L railing Recommendations To Nursing Amount of Assist Needed 1 Person Assist Discharge Recommendations PT Discharge Recommendations Home with Assistance Equipment Needed for Home Before 4ww since pt's 4ww is a Discharge modified 4ww from FWW
--- NOTE | 2018-10-03 16:07 | PC.NURSE ---
Ortho: Concerned about pain control this am. can't take celebrex due to kidney failure stage per pt. MD made aware and med was d/c. After review of meds available a plan was decided upon and inititated. Pt reports pain has been in control all day, rarely above a 4/10. Has been able to do her therapy. Both dressing are clean and intact. Cont w/poc.
[2018-10-03] MEDS: AMLODIPINE 5 MG TABLET 10 MG PO (20:51)
[2018-10-03] MEDS: ATORVASTATIN 20 MG TABLET PO (20:51)
[2018-10-03] MEDS: SENNOSIDES 8.6 MG TABLET 17.2 MG PO (20:51)
[2018-10-04] MEDS: OXYCODONE IR 5 MG TABLET 10 MG PO ×7 (00:04→20:39)
[2018-10-04] MEDS: ACETAMINOPHEN 325 MG TABLET 650 MG PO ×4 (02:01→20:40)
[2018-10-04] MEDS: hydrOXYzine pamoate 25 MG CAPSULE PO ×4 (02:01→20:40)
[2018-10-04 04:00] VITALS: BP 111/51; PULSE 73; RESP 18; TEMP 36.8; O2SAT 94
[2018-10-04] MEDS: PANTOPRAZOLE 40 MG TABLET PO (05:18)
[2018-10-04 07:00] VITALS: BP 137/61; PULSE 84; RESP 18; TEMP 36.6; O2SAT 93
[2018-10-04] MEDS: FUROSEMIDE 20 MG TABLET PO (08:33)
[2018-10-04] MEDS: ASPIRIN EC 81 MG TABLET PO (08:33)
[2018-10-04] MEDS: DOCUSATE 100 MG CAPSULE PO ×2 (08:33→20:43)
[2018-10-04] MEDS: METOPROLOL IR 50 MG TABLET PO ×2 (08:33→20:41)
[2018-10-04] MEDS: SODIUM CHLORIDE 0.9% FLUSH 10 ML IV ×2 (08:34→20:43)
[2018-10-04] MEDS: MULTIVITAMIN 1 TABLET 1 TAB PO (08:34)
--- NOTE | 2018-10-04 08:41 | P.PN_ITS ---
Subjective Date Patient Seen: 10/04/18 Time Patient Seen: 08:40 Interval history: Pain is about 6/10, all postsurgical in the back. Feels like the nerve pain is much better. Exam Vital Signs (past 8 hours): - 10/04/18 04:00 Temperature 98.2 F Pulse Rate 73 Respiratory Rate 18 Blood Pressure 111/51 L Pulse Oximetry 94 Oxygen Delivery Method Room Air Oxygen Flow Rate 0 Const Orientation: alert and oriented x3 Back/Spine/Pelvis Other: mild to moderate drainage. 5/5 motor both lower extremities. Objective Labs Result Diagrams: 10/03/18 05:31 10/03/18 05:31 Assessment & Plan Post-op Postoperative Procedures Operation Date: 10/02/18 11:15 Actual Procedures Side Surgeon p L2-3,L3-4 Anterior/Posterior Instru. fusion & bone graft, Left L3-4 Laminectomy & Discectomy Luis Angel Phan MD s L1 Kyphoplasty Luis Angel Phan MD She is doing well postoperatively. Continue to mobilize with physical the rapy. Anticipate discharge home tomorrow. She has 2 daughters that will be able to help her at home when she goes home. Quality VTE Deep Vein Thrombosis/Pulmonary Embolism Present on Admission: No
--- NOTE | 2018-10-04 11:00 | PT.IPTN ---
Current Diagnoses Scoliosis, unspecified (10/02/18) Intervertebral disc disorders with radiculopathy, lumbar region (10/02/18) Wedge compression fracture of third lumbar vertebra, subsequent encounter for fracture with delayed healing (10/02/18) Arthrodesis status (10/02/18) Surgery Performed Operation Date: 10/02/18 11:15 Actual Procedures p L2-3,L3-4 Anterior/Posterior Instru. fusion & bone graft, Left L3-4 Laminectomy & Discectomy - Luis Angel Phan MD s L1 Kyphoplasty - Luis Angel Phan MD Physical Therapy Treatment Note M2 PT-IP Current Condition Start: 10/03/18 11:38 Freq: NEEDED Status: Active Protocol: Document 10/03/18 10:20 HH (Rec: 10/03/18 12:02 [email or web address]) Physical Therapy Current Condition Current Condition Evaluation Date 10/03/18 Treatment Diagnosis L2-L4 ant/post instru.fusion, bone graft, impaired gait, muscle weakness Onset Date 10/02/18 Precautions Lumbar Precautions Log Roll No Twisting Limit Bending Lifting Restriction of 10 lbs Gait Belt above Incisional Area Weight Bearing Status Weight Bearing Status Weight Bear as Tolerated M3 PT-IP Subjective Start: 10/03/18 11:38 Freq: NEEDED Status: Active Protocol: Document 10/04/18 11:00 GGD (Rec: 10/04/18 12:27 GGD [id number]) Subjective Physical Therapy Visit Type Type Treatment Note Visit Start Time 10:30 Visit Stop Time 11:00 Total Visit Minutes 30 Number of PROCESS OPERATOR Visits 1 Physical Therapy Visit Comments Patient Comments Pt willing to work with therapy. Therapy Pain Assessment Pain When Pain Assessed During Mobility Pain Present Pain Present Pain Reported Location Lower Back Intensity 4 Scale Used Numeric (1 - 10) M4 PT-IP Mobility and Gait Start: 10/03/18 11:38 Freq: NEEDED Status: Active Protocol: Document 10/04/18 11:00 GGD (Rec: 10/04/18 12:27 GGD [id number]) PT-Bed Mobility Assessment Rolling Type of Rolling Log Rolling Roll to Left Level of Assist Contact Guard Assistance Supine to Sit Supine to Sit Contact Guard Assistance Bedrails Scooting Scooting to Edge of Bed Contact Guard Assistance PT-Transfer Assessment Sit to and From Stand Sit to and from Stand Contact Guard Assistance Use of Upper Extremities Equipment Transfer Assistive Device Gait Belt Front Wheeled Walker Orthotic/Prosthetic Devices or Brace: No Transfers Transfer Destination Chair Toilet Transfer Ability Level of Assist Contact Guard Assistance 1 Person Assistance Use of Upper Extremities Comments Mobility Comments Pt improving with mobility. She did have knee buckling with gait to bathroom, but not with hallway gait. Gait Assessment Gait Gait Assistance Required: Contact Guard Assist Distance (Feet) 220 Able to Maintain Weight Bearing Status Yes During Gait Assistive Devices Assistive Device Gait Belt 4 Wheeled Walker Orthotic/Prosthetic Devices or Brace: No Gait Deviations General Gait Pattern Decreased Stride Length Decreased Feet Clearance Flexed Trunk Factors Limiting Gait Function Factors Limiting Gait Function Decreased Activity Tolerance Decreased Strength Limited Range of Motion Pain Comments Gait Comments used FWW with 4 wheeles Stair Climbing Assessment Evaluation Level of Assist On Stairs Contact Guard Assistance Devices Stair Climbing Assistive Devices Left Railing Right Railing Technique/Endurance Stair Climbing Direction Ascend and Descend Stair Climbing Technique Step Over Step Step to Step Number of Steps Climbed 3 Query Text: Stair Climbing Set # Repetitions (reps) 1 Comments Stair Climbing Comments right rail only and step over during ascend and step to during descend with B rails, Pt used B rails states she has a rail and a wall at home she uses. M5 PT-IP Objective Assessments Start: 10/03/18 11:38 Freq: NEEDED Status: Active Protocol: Document 10/03/18 10:20 (Rec: 10/03/18 12:02 [email or web address]) Orientation Orientation/Cognition Level of Alertness Alert Orientation Name Age Birthday Month Date Year Day of Week Place Situation Language Function Ability No Deficits Noted Safety Awareness Understands Safety Issues Memory Description No Deficits Noted Gross Range of Motion Upper Extremity ROM Assessment Within Functional Limits Lower Extremity ROM Assessment Within Functional Limits Strength Upper Extremity Strength Assessment Within Functional Limits Lower Extremity Strength Assessment Within Functional Limits Coordination Assessment Gross Coordination Gross Coordination WNL Sensation Assessment Sensation Gross Sensation WNL Light Touch Intact Proprioception (Position) Intact Muscle Tone Muscle Tone WNL Yes M6 PT-IP Treatment Start: 10/03/18 11:38 Freq: NEEDED Status: Active Protocol: Document 10/04/18 11:00 GGD (Rec: 10/04/18 12:27 GGD [id number]) Physical Therapy Treatment Exercises Exercises Ankle Pumps Gluteal Sets Quad Sets Education Education Provided Precautions Safety M7 PT-IP Assessment and Plan Start: 10/03/18 11:38 Freq: NEEDED Status: Active Protocol: Document 10/04/18 11:00 GGD (Rec: 10/04/18 12:27 GGD [email or web address]) PT Summary Assessment and Plan Summary Assessment Summary Pt improving with mobility. She was able to progress gait distance. She had no LE buckling with a slower gait pace. she was safe and had good control with 4WW. Pt safe for home D/C when medically stable. Frequency of Treatment Frequency Of Treatment Twice a Day Treatment Plan Physical Therapy Treatment Plan Bed Mobility Training Transfer Training Gait Training Therapeutic Exercise Post Op Education Discharge Planning Hot or Cold Pack Other Recommendations and Next Treatment transfer and gait training as Focus pelon Recommendations To Nursing Amount of Assist Needed 1 Person Assist Discharge Recommendations PT Discharge Recommendations Home with Assistance
[2018-10-04 12:13] VITALS: BP 123/55; PULSE 65; RESP 16; TEMP 36.5; O2SAT 98
--- NOTE | 2018-10-04 14:15 | PT.IPTN ---
Current Diagnoses Scoliosis, unspecified (10/02/18) Intervertebral disc disorders with radiculopathy, lumbar region (10/02/18) Wedge compression fracture of third lumbar vertebra, subsequent encounter for fracture with delayed healing (10/02/18) Arthrodesis status (10/02/18) Surgery Performed Operation Date: 10/02/18 11:15 Actual Procedures p L2-3,L3-4 Anterior/Posterior Instru. fusion & bone graft, Left L3-4 Laminectomy & Discectomy - Luis Angel Phan MD s L1 Kyphoplasty - Luis Angel Phan MD Physical Therapy Treatment Note M2 PT-IP Current Condition Start: 10/03/18 11:38 Freq: NEEDED Status: Active Protocol: Document 10/03/18 10:20 HH (Rec: 10/03/18 12:02 [email or web address]) Physical Therapy Current Condition Current Condition Evaluation Date 10/03/18 Treatment Diagnosis L2-L4 ant/post instru.fusion, bone graft, impaired gait, muscle weakness Onset Date 10/02/18 Precautions Lumbar Precautions Log Roll No Twisting Limit Bending Lifting Restriction of 10 lbs Gait Belt above Incisional Area Weight Bearing Status Weight Bearing Status Weight Bear as Tolerated M3 PT-IP Subjective Start: 10/03/18 11:38 Freq: NEEDED Status: Active Protocol: Document 10/04/18 14:00 GGD (Rec: 10/04/18 14:48 GGD [id number]) Subjective Physical Therapy Visit Type Type Treatment Note Visit Start Time 14:00 Visit Stop Time 14:15 Total Visit Minutes 15 Number of AIRCRAFT SALES REPRESENTATIVE Visits 2 Physical Therapy Visit Comments Patient Comments Pt wants to get up. Therapy Pain Assessment Pain When Pain Assessed During Mobility Pain Present Pain Present Pain Reported Location Lower Back Intensity 3 Scale Used Numeric (1 - 10) M4 PT-IP Mobility and Gait Start: 10/03/18 11:38 Freq: NEEDED Status: Active Protocol: Document 10/04/18 14:00 GGD (Rec: 10/04/18 14:48 GGD [id number]) PT-Bed Mobility Assessment Rolling Type of Rolling Log Rolling Roll to Left Level of Assist Contact Guard Assistance Supine to Sit Supine to Sit Contact Guard Assistance Bedrails Sit to Supine Sit to Supine Contact Guard Assistance Scooting Scooting to Edge of Bed Contact Guard Assistance PT-Transfer Assessment Sit to and From Stand Sit to and from Stand Contact Guard Assistance Use of Upper Extremities Equipment Transfer Assistive Device Gait Belt Front Wheeled Walker Orthotic/Prosthetic Devices or Brace: No Transfers Transfer Destination Bed Transfer Ability Level of Assist Contact Guard Assistance 1 Person Assistance Use of Upper Extremities Comments Mobility Comments Pt needed mod cues for full log roll. Gait Assessment Gait Gait Assistance Required: Contact Guard Assist Distance (Feet) 220 Able to Maintain Weight Bearing Status Yes During Gait Assistive Devices Assistive Device Gait Belt Front Wheeled Walker Orthotic/Prosthetic Devices or Brace: No Gait Deviations General Gait Pattern Decreased Stride Length Decreased Feet Clearance Flexed Trunk Factors Limiting Gait Function Factors Limiting Gait Function Decreased Activity Tolerance Decreased Strength Limited Range of Motion Pain Stair Climbing Assessment Evaluation Level of Assist On Stairs Contact Guard Assistance Devices Stair Climbing Assistive Devices Left Railing Right Railing Technique/Endurance Stair Climbing Direction Ascend and Descend Stair Climbing Technique Step Over Step Number of Steps Climbed 3 Query Text: Stair Climbing Set # Repetitions (reps) 1 M5 PT-IP Objective Assessments Start: 10/03/18 11:38 Freq: NEEDED Status: Active Protocol: Document 10/03/18 10:20 (Rec: 10/03/18 12:02 [email or web address]) Orientation Orientation/Cognition Level of Alertness Alert Orientation Name Age Birthday Month Date Year Day of Week Place Situation Language Function Ability No Deficits Noted Safety Awareness Understands Safety Issues Memory Description No Deficits Noted Gross Range of Motion Upper Extremity ROM Assessment Within Functional Limits Lower Extremity ROM Assessment Within Functional Limits Strength Upper Extremity Strength Assessment Within Functional Limits Lower Extremity Strength Assessment Within Functional Limits Coordination Assessment Gross Coordination Gross Coordination WNL Sensation Assessment Sensation Gross Sensation WNL Light Touch Intact Proprioception (Position) Intact Muscle Tone Muscle Tone WNL Yes M6 PT-IP Treatment Start: 10/03/18 11:38 Freq: NEEDED Status: Active Protocol: Document 10/04/18 14:00 GGD (Rec: 10/04/18 14:48 GGD [id number]) Physical Therapy Treatment Exercises Exercises Ankle Pumps Gluteal Sets Quad Sets Education Education Provided Precautions Safety M7 PT-IP Assessment and Plan Start: 10/03/18 11:38 Freq: NEEDED Status: Active Protocol: Document 10/04/18 14:00 GGD (Rec: 10/04/18 14:48 GGD [id number]) PT Summary Assessment and Plan Summary Assessment Summary Pt able to progress stair mobility to step over step. She had no unsteadiness or LOB with gait. She safe for home D /C when medically stable. Frequency of Treatment Frequency Of Treatment Twice a Day Treatment Plan Physical Therapy Treatment Plan Bed Mobility Training Transfer Training Gait Training Therapeutic Exercise Post Op Education Discharge Planning Hot or Cold Pack Recommendations To Nursing Amount of Assist Needed 1 Person Assist Discharge Recommendations PT Discharge Recommendations Home with Assistance
[2018-10-04 16:00] VITALS: BP 114/50; PULSE 70; RESP 17; TEMP 37.4; O2SAT 95
--- NOTE | 2018-10-04 16:24 | OT.IP.TRT ---
Current Diagnoses Scoliosis, unspecified (10/02/18) Intervertebral disc disorders with radiculopathy, lumbar region (10/02/18) Wedge compression fracture of third lumbar vertebra, subsequent encounter for fracture with delayed healing (10/02/18) Arthrodesis status (10/02/18) Surgery Performed Operation Date: 10/02/18 11:15 Actual Procedures p L2-3,L3-4 Anterior/Posterior Instru. fusion & bone graft, Left L3-4 Laminectomy & Discectomy - Luis Angel Phan MD s L1 Kyphoplasty - Luis Angel Phan MD Occupational Therapy Treatment Note M2 OT-IP Current Condition Start: 10/03/18 09:20 Freq: Status: Active Protocol: Document 10/03/18 11:27 [facility] (Rec: 10/03/18 11:58 [facility] [id number]) Occupational Therapy Current Condition Current Condition Evaluation Date 10/03/18 Treatment Diagnosis Lumbar stenosis Diagnosis Onset Date 10/02/18 Post Operative Precautions Lumbar Precautions Log Roll No Twisting Limit Bending Lifting Restriction of 10 lbs Gait Belt above Incisional Area Weight Bearing Status Weight Bearing Status Weight Bear as Tolerated M3 OT- IP Subjective and Pain Start: 10/03/18 09:20 Freq: Status: Active Protocol: Document 10/04/18 16:22 [facility] (Rec: 10/04/18 16:24 [facility] [id number]) OT- Subjective Occupational Therapy Visit Type Type Patient Refusal Notes Pt states does not have any questions for OT needs and states feels comfortable and capable with assist from family to go home tomorrow. Pt requesting to be discharged in AM, information passed to nurse.
[2018-10-04 20:30] VITALS: BP 146/63; PULSE 97; RESP 18; TEMP 37.3; O2SAT 99
[2018-10-04] MEDS: AMLODIPINE 5 MG TABLET 10 MG PO (20:42)
[2018-10-04] MEDS: ATORVASTATIN 20 MG TABLET PO (20:42)
[2018-10-04] MEDS: SENNOSIDES 8.6 MG TABLET 17.2 MG PO (20:43)
[2018-10-05 00:10] VITALS: BP 121/49; PULSE 75; RESP 18; TEMP 36.8; O2SAT 99
[2018-10-05] MEDS: OXYCODONE IR 10 MG TABLET PO ×2 (00:27→05:03)
[2018-10-05] MEDS: ACETAMINOPHEN 325 MG TABLET 650 MG PO (05:02)
[2018-10-05] MEDS: SODIUM CHLORIDE 0.9% FLUSH 10 ML IV ×2 (05:05→09:00)
--- NOTE | 2018-10-05 05:22 | PC.NURSE ---
restaurant shift supervisor AOx4, x1 assist FWW, coversite on back was changed previous shift, currently CDI. Saline locked, flushed IV some leakage at first, but flushed well after that. Pain 6/10 asked for 10 mg of oxycodone and asked to be awakened for next dose. Bed alarm on, will continue to monitor for needs and safety.
[2018-10-05] MEDS: PANTOPRAZOLE 40 MG TABLET PO (05:58)
[2018-10-05 06:00] VITALS: BP 139/63; PULSE 79; RESP 19; TEMP 36.6; O2SAT 97
[2018-10-05 07:55] VITALS: BP 121/52; PULSE 75; RESP 17; TEMP 36.8; O2SAT 96
[2018-10-05] MEDS: hydrOXYzine pamoate 25 MG CAPSULE PO (07:58)
[2018-10-05] MEDS: OXYCODONE IR 5 MG TABLET PO ×3 (07:59→11:12)
[2018-10-05] MEDS: DOCUSATE 100 MG CAPSULE PO (08:59)
[2018-10-05] MEDS: FUROSEMIDE 20 MG TABLET PO (08:59)
[2018-10-05] MEDS: METOPROLOL IR 50 MG TABLET PO (08:59)
[2018-10-05] MEDS: ASPIRIN EC 81 MG TABLET PO (09:00)
[2018-10-05] MEDS: MULTIVITAMIN 1 TABLET 1 TAB PO (09:00)
--- NOTE | 2018-10-05 10:34 | PC.NURSE ---
Day shift: Changed dressing to Coversite. Surgical site well approximated. No s/s of infection. Pt getting dressed with HOME ENERGY AUDITOR. Expect to d/c soon. Agrees to not get OOB or chair w/o help from staff.
--- NOTE | 2018-10-05 10:45 | PM.DS.1 ---
History of Present Illness Date Patient Seen: 10/05/18 Time Patient Seen: 10:45 Chief complaint: [id number] Narrative: The patient reports she is doing well overall. Pain is controlled with 10 mg of oxycodone every 4 hr. Discharge Providers Date of admission: 10/02/18 09:34 Discharge Date: 10/05/18 Primary care physician: Rodriguez Ruth MD Consults: 09/26/18 14:46 Consult to Pastoral Services Routine Comment: XLIF 10/02/18 10/02/18 18:05 Consult to Occupational Therapy Evaluate & Treat Comment: Physician Instructions: Evaluate and treat Consult to Physical Therapy Evaluate & Treat Comment: Physician Instructions: Evaluate and Treat 10/02/18 18:46 Consult to Pastoral Services Routine Comment: requested by pt Discharge provider: Elvin Hummel MD Summary Discharge Diagnosis: Degenerative disc disease spinal stenosis Hospital Course: Patient had scheduled surgery on day of admission. She had a normal postoperative course. Pain was well controlled on oral medications at the time of discharge. Status at Discharge Cognitive/behavioral status at discharge: oriented Functional status at discharge: uses cane/walker Overall status at discharge: patient is progressing back to baseline Time Spent with Patient Time spent discussing smoking cessation with patient: 3 to 10 minutes Exam Vital Signs (past 8 hours): - 10/05/18 06:00 10/05/18 07:55 Temperature 97.9 F 98.2 F Pulse Rate 79 75 Respiratory Rate 19 17 Blood Pressure 139/63 121/52 L Pulse Oximetry 97 96 Oxygen Delivery Method Room Air Oxygen Flow Rate 0 Narrative Exam Narrative: Dressing is clean and dry. Lower extremities are neurovascularly intact. Objective Labs Result Diagrams: 10/03/18 05:31 10/03/18 05:31 Discharge Plan Discharge Plan Patient Disposition: Home Discharge comment: f/u 1.5 wks Discharge Med Rec/Prescriptions Prescriptions: New docusate sodium 100 mg Capsule 100 mg PO BID Qty: 60 RF: 0 hydroxyzine pamoate 25 mg Capsule 25 mg PO Q4HR PRN (Reason: spasms) Qty: 20 RF: 0 oxycodone 5 mg Tablet See Rx Instructions .ROUTE .COMPLEX PRN (Reason: Pain, Moderate (4-6)) Qty: 84 RF: 0 Continued aspirin 81 MG tablet,delayed release (DR/EC) 81 mg PO QDAY Qty: 0 RF: 0 acetaminophen [Tylenol Extra Strength] 500 MG tablet 500 mg PO Q6HP PRN (Reason: Pain, Mild) Qty: 0 RF: 0 atorvastatin [Lipitor] 40 MG tablet 20 mg PO HS Qty: 90 RF: 3 furosemide 20 mg tablet 20 mg PO DAILY RF: 0 amlodipine 5 mg tablet 10 mg PO BEDTIME RF: 0 metoprolol tartrate 50 mg tablet 50 mg PO BID RF: 0 multivitamin tablet 1 tab PO DAILY RF: 0 oxycodone 5 mg tablet 5 mg PO 6XD RF: 0 omeprazole 40 mg Capsule,Delayed Release(Dr/Ec) 40 mg PO DAILY RF: 0 Follow up/Referrals: Rodriguez Ruth MD [Primary Care Provider] - Provider Discharge Instructions Diet: Regular Diet comment: reg Activity: limited BLT 10 lbs max Skin/Wound/Dressing Care Report to your healthcare provider any signs of infection, such as:: chills, fever, night sweats, increased pain, unusual drainage and unusual redness Dressing: may change dressing and shower POD#5 Visit Report/Discharge Packet Instructions: DI for Lateral Lumbar Interbody Fusion Stand Alone Forms: Surgery Discharge Discharge Data Primary Care Provider: Rodriguez Ruth Attending Provider: Luis Angel Phan Admit Date/Time: 10/02/18 09:34 Quality VTE Deep Vein Thrombosis/Pulmonary Embolism Present on Admission: No
--- NOTE | 2018-10-05 11:35 | PC.NURSE ---
Day shift: Pt left unit in WC with her daughter and [employer] to private care. Paperwork signed and all questions answered. Pt has all personal belongings and MD scrips. Daughter has extra Coversite if needed after shower. Went over how to change dressing.
== END 2018-10-05 11:38 | disposition home or self-care (01) | DRG 454 ==
PROVIDERS: Admitting Provider Orthopaedic Surgery; Family Provider Student in an Organized Health Care Education/Training Program; PCP Student in an Organized Health Care Education/Training Program; Visit Provider Orthopaedic Surgery
PROC: 0SG00A0 Fusion of Lumbar Vertebral Joint with Interbody Fusion Device, Anterior Approach, Anterior Column, Open Approach (ICD-10-PCS; CPT 22558; principal; 2018-10-02 11:15)
PROC: 0SG10A0 Fusion of 2 or more Lumbar Vertebral Joints with Interbody Fusion Device, Anterior Approach, Anterior Column, Open Approach (ICD-10-PCS; 2018-10-02 11:15)
DX: M48.061 Spinal stenosis, lumbar region without neurogenic claudication (principal); B02.23 Postherpetic polyneuropathy; I12.9 Hypertensive chronic kidney disease with stage 1 through stage 4 chronic kidney disease, or unspecified chronic kidney disease; N18.3 Chronic kidney disease, stage 3 (moderate); N25.0 Renal osteodystrophy; I08.1 Rheumatic disorders of both mitral and tricuspid valves; Z85.72 Personal history of non-Hodgkin lymphomas; I25.10 Atherosclerotic heart disease of native coronary artery without angina pectoris; I45.10 Unspecified right bundle-branch block; M43.16 Spondylolisthesis, lumbar region
CPT/HCPCS: 72110; 76000; 80048; 85014; 85018; 94762; 97116; 97161; 97165; 97530; 97535; C1776; J0330; J0595; J0690; J1100; J1170; J2274; J2405; J2704; J3010

== ENCOUNTER 2018-11-27 09:43 | Emergency (ER) | payer MEDICARE, OTHER, SELFPAY ==
[2018-10-02 09:52] VITALS: BMI 20.1
--- NOTE | 2018-11-27 09:50 | DI.RAD.S_ITS ---
PROCEDURE: XR CHEST 1V INDICATIONS: weakness, pacemaker TECHNIQUE: One view of the chest was acquired. COMPARISON: [facility], CR, XR CHEST 1 VIEW, 08/22/2017, 13:31. FINDINGS: Surgical changes and devices: There is a left-sided cardiac pacer/defibrillator. Postoperative changes of the lumbar spine are present. Lungs and pleura: Interstitial markings are evident within the right perihilar region, similar to the previous exam. No focal consolidation, effusion, or pneumothorax is evident. Mediastinum: Mediastinal contours appear normal. Heart size is normal. There is aortic atherosclerosis. Bones and chest wall: No suspicious bony lesions. Overlying soft tissues appear unremarkable. IMPRESSION: Mild scarring versus atelectasis within the right hilar region. No acute cardiopulmonary process is suspected. Dictated by: Han Clemens M.D. on 11/27/2018 at 10:01 Approved by: Han Clemens M.D. on 11/27/2018 at 10:07
--- NOTE | 2018-11-27 09:58 | ED_ITS ---
HPI - Weakness General Chief complaint: Weakness Stated complaint: Anxiety Time Seen by Provider: 11/27/18 09:49 Source: patient and EMS Mode of arrival: EMS Limitations: no limitations History of Present Illness HPI Narrative: Patient is 73-year-old female who presents with shaking. She states she was on way to [employer] study she had a good breakfast but then all of a sudden felt weak and shaking she can't stop shaking. She was doing well this morning she had a full breakfast. Glucose was found to be 67. She is not diabetic. He has not had any fever chills no nausea vomiting no painful frequent urination. She does have a pacemaker but she denies any chest pain. She just can't stop shaking. She is afebrile. sHe just does not feel great MD Complaint: generalized weakness Location: generalized Migration: none Related Data Home Medications Medication Instructions Recorded Confirmed aspirin 81 mg PO BEDTIME #0 08/07/12 11/27/18 acetaminophen [Tylenol Extra 500 mg PO Q6HP PRN #0 08/01/17 11/27/18 Strength] furosemide 20 mg tablet 20 mg PO DAILY 06/22/18 11/27/18 metoprolol tartrate 50 mg tablet 50 mg PO BID 08/06/18 11/27/18 multivitamin tablet 0.5 tab PO BID 08/06/18 11/27/18 omeprazole 40 mg PO DAILY 09/29/18 11/27/18 Calcium 1 tab PO DAILY 11/27/18 11/27/18 Fish Oil 1 cap PO DAILY 11/27/18 11/27/18 atorvastatin 20 mg PO BEDTIME 11/27/18 11/27/18 docusate sodium 100 mg PO BEDTIME 11/27/18 11/27/18 naloxone [Narcan] 1 spray INTRANASAL DIRECTED PRN 11/27/18 11/27/18 oxycodone-acetaminophen 1 tab PO Q6H 11/27/18 11/27/18 Previous Rx's Medication Instructions Recorded amlodipine 5 mg tablet 5 mg PO BEDTIME #90 tab 11/07/18 hydroxyzine pamoate 25 mg capsule 25 mg PO Q4HR PRN #30 cap 11/21/18 Allergies Allergy/AdvReac Type Severity Reaction Status Date / Time gabapentin AdvReac Severe swelling Verified 11/04/18 11:29 legs and feet propoxyphene [From DARVON] AdvReac Severe SOB Verified 11/04/18 11:29 prochlorperazine AdvReac Intermediate SOB Verified 11/04/18 11:29 [From COMPAZINE] Review of Systems Review of Systems ROS Unobtainable: All systems reviewed & are unremarkable except as noted in HPI and below Constitutional Denies chills, Denies fever(s), Denies lethargy and Reports weakness Eyes Denies change in vision, Denies eye discharge, Denies irritation and Denies loss of vision ENT Ears, Nose, Mouth, and Throat: Denies change in voice, Denies neck pain and Denies sore throat Cardiovascular Denies chest pain, Denies irregular heart rhythm, Denies lightheadedness, Denies palpitations, Denies dyspnea, Denies dyspnea on exertion and Denies orthopnea Respiratory Denies cough, Denies dyspnea, Denies dyspnea on exertion and Denies wheezing Musculoskeletal Denies atrophy, Denies deformity and Denies neck pain Integumentary/Breasts Denies pruritus, Denies erythema, Denies rash and Denies wounds Neurologic Denies loss of vision and Reports weakness Endocrine Denies palpitations Allergic/Immunologic Denies wheezing [facility] Medical History CKD (chronic kidney disease), stage III (Acute) Generalized headaches (Acute) Hyponatremia (Acute) Iron deficiency anemia (Acute) Coronary artery disease (Chronic Unknown) GERD (gastroesophageal reflux disease) (Chronic Unknown) History of anemia (Chronic Unknown) Hyperlipemia (Chronic Unknown) Hypertension (Chronic Unknown) Osteoporosis (Chronic Unknown) Pacemaker (Chronic ~2016) Scoliosis (Chronic Unknown) Shingles (herpes zoster) polyneuropathy (Chronic Unknown) Spinal stenosis (Chronic Unknown) History of GI bleed (Resolved Unknown) Hx of fracture of arm (Resolved Unknown) Hx of myocardial infarction (Resolved 2005) Lymphoma (Resolved 1992) Surgical History History of lumbar surgery (Acute ~07/2017) Hx of kyphoplasty (Acute 03/13/18) History of abdominal surgery (Resolved 1991) History of back surgery (Resolved Unknown) History of lumpectomy of right breast (Resolved 1991) Hx of cataract surgery (Resolved 2005) Hx of hysterectomy (Resolved Unknown) Hx of partial mastectomy (Resolved Unknown) Family History (Updated 01/30/18 @ 14:40 by Gauri Gomez LPN) Father Cancer Mother Cancer Sister Cancer Social History household members: none Smoking Status: Never smoker alcohol intake: current Family History Father Cancer Mother Cancer Sister Cancer Social History household members: none Smoking Status: Never smoker alcohol intake: current Exam Initial Vital Signs Initial Vital Signs: Vital Signs Temperature 98.4 F 11/27/18 10:02 Pulse Rate 67 11/27/18 10:02 Respiratory Rate 21 11/27/18 10:02 Blood Pressure 146/57 H 11/27/18 10:02 Pulse Oximetry 100 11/27/18 10:02 GENERAL: Alert elderly female in visibly shaking and in [no acute] distress. HEENT: Head atraumatic,EOMI, pupils reactive, face symmetric, CARDIOVASCULAR: Regular rate and rhythm without murmurs, rubs or gallops. RESPIRATORY: Breath sounds equal bilaterally, no wheezes rales or rhonchi. ABDOMEN: Soft, nontender. Normoactive bowel sounds all 4 quadrants. No guarding or rebound. : No CVA tenderness EXTREMITIES: Normal range of motion, no clubbing or edema. Neurovascularly intact NEUROLOGICAL: Alert and oriented x4.Normal gait and speech. Cranial nerves II through XII grossly intact. SKIN: Warm, dry, no laceration, no petechiae, no rashes or lesions. Course Orders Ordered: ED Orders 11/27/18 09:50 XR chest 1V Stat EKG-12 Lead Stat 11/27/18 10:25 B Type Natriuretic Peptide Stat Complete Blood Count AUTO DIFF Stat Comprehensive Metabolic Panel Stat Lipase Stat Troponin & CK Cardiac Panel Stat Sodium Chloride (Normal Saline 0.9%) 1,000 mls @ 150 mls/hr IV CONT ELIZABETH Last Admin: 11/27/18 10:24 Dose: 150 mls/hr Discontinued Medications Aspirin (Aspirin Chew) 324 mg PO NOW ONE Stop: 11/27/18 09:50 Last Admin: 11/27/18 10:24 Dose: 324 mg Vital Signs - 8 hr 11/27/18 10:02 11/27/18 10:14 11/27/18 11:04 Temperature 98.4 F Pulse Rate 67 68 64 Respiratory Rate 21 21 18 Blood Pressure 146/57 H Blood Pressure [Right Arm] 132/48 L 120/45 L Pulse Oximetry 100 100 100 11/27/18 12:17 Temperature 98.7 F Pulse Rate 62 Respiratory Rate 13 Blood Pressure Blood Pressure [Right Arm] 117/46 L Pulse Oximetry 99 MDM - Weakness Lab Data Attestation: I reviewed the patient's lab results. Result diagrams: 11/27/18 10:25 11/27/18 10:25 Lab Results 11/27/18 11/27/18 11/27/18 Range/Units 10:25 10:25 10:25 WBC 7.0 (4.5-11.0) X10^3/uL RBC 3.71 L (4.0-5.2) X10^6/uL Hgb 11.1 L (12.0-16.0) g/dL Hct 33.2 L (36-46) % MCV 89.7 (80-100) fL MCH 29.9 (26-34) PG MCHC 33.3 (30-36) % RDW 16.3 H (11.6-14.8) % Plt Count 321 (150-400) X10^3/uL Neut % (Auto) 74.1 (50-75) % Lymph % (Auto) 11.9 L (25-40) % [place] % (Auto) 5.8 (3-14) % Eos % (Auto) 7.4 H (2-4) % Baso % (Auto) 0.8 (0-2) % Neut # (Auto) 5200 (7620-0716) /uL Lymph # (Auto) 800 L (6133-7510) /uL [place] # (Auto) 400 (0-900) /uL Eos # (Auto) 500 H (0-450) /uL Baso # (Auto) 100 (0-100) /uL Sodium 133 L (137-145) mmol/L Potassium 4.5 (3.4-5.1) mmol/L Chloride 98 (98-107) mmol/L Carbon Dioxide 26 (22-32) mmol/L BUN 17 (7-17) mg/dL Creatinine 1.10 H (0.52-1.04) mg/dL Estimated GFR 48.6 L (>60) mL/min BUN/Creatinine Ratio 15.5 (6-22) Glucose 124 H (80-110) mg/dL Calcium 10.3 H (8.4-10.2) mg/dL Total Bilirubin 0.4 (0.2-1.3) mg/dL AST 32 (14-36) IU/L ALT 23 (9-52) IU/L Alkaline Phosphatase 107 (38-126) U/L Total Creatine Kinase 31 (30-135) U/L CK-MB (CK-2) TNP CK-MB (CK-2) Rel Index TNP Troponin I < 0.012 (0.01-0.034) ng/mL B-Natriuretic Peptide 191 H (<100) Total Protein 6.8 (6.3-8.2) g/dL Albumin 3.8 (3.5-5.0) g/dL Globulin 3.0 (1.7-4.1) g/dL Albumin/Globulin Ratio 1.3 (1.0-2.8) Lipase 123 (23-300) U/L Point of Care Testing Glucose POC 106 Urine Dip Bedside Urine Glucose Negative Bedside Urine Bilirubin - Negative Bedside Urine Ketone - Negative Urine Specific [place] 1.020 Bedside Urine Occult Blood - Negative Bedside Urine pH 6.0 Bedside Urine Protein - Negative Bedside Urine Urobilinogen - Negative Bedside Urine Nitrite - Negative Bedside Urine Leukocytes - Negative Esterase Imaging Data Chest x-ray: Radiologist's impression: PROCEDURE: XR CHEST 1V INDICATIONS: weakness, pacemaker TECHNIQUE: One view of the chest was acquired. COMPARISON: [facility], , XR CHEST 1 VIEW, 08/22/2017, 13:31. FINDINGS: Surgical changes and devices: There is a left-sided cardiac pacer/defibrillator. Postoperative changes of the lumbar spine are present. Lungs and pleura: Interstitial markings are evident within the right perihilar region, similar to the previous exam. No focal consolidation, effusion, or pneumothorax is evident. Mediastinum: Mediastinal contours appear normal. Heart size is normal. There is aortic atherosclerosis. Bones and chest wall: No suspicious bony lesions. Overlying soft tissues appear unremarkable. IMPRESSION: Mild scarring versus atelectasis within the right hilar region. No acute cardiopulmonary process is suspected. Dictated by: Han Clemens M.D. on 11/27/2018 at 10:01 ECG Data Attestation: I personally reviewed and interpreted this ECG as follows: Prior ECG tracings: available for review Interpretation: Paced rhythm rate [address] changes similar to previous EKG Shilpi improved from previous EKG MDM Narrative Medical decision making narrative: Shaking improved she drink orange juice. Glucose stable friend is at bedside. At this time no sign of shaking or weakness no infection. No indication for any further studies or admission. Patient is asking to go home. Discharge Plan Departure Patient Disposition: Home Clinical Impression: Hypoglycemia Instructions: DI for Hypoglycemia Activity Restrictions/Additional Instructions: *You have been diagnosed with low blood sugar *What to do: Recommend eating small frequent to help regulate blood sugar *Continue to take medications as directed *Follow up with your primary care provider in 2-3 days *Return to ER if you should have increasing shaking, chest pain, and or any new, worsening or concerning symptoms Prescriptions: No Action aspirin 81 MG tablet,delayed release (DR/EC) 81 mg PO BEDTIME Qty: 0 RF: 0 acetaminophen [Tylenol Extra Strength] 500 MG tablet 500 mg PO Q6HP PRN (Reason: Pain, Mild) Qty: 0 RF: 0 furosemide 20 mg tablet 20 mg PO DAILY RF: 0 amlodipine 5 mg tablet 5 mg PO BEDTIME Qty: 90 RF: 3 hydroxyzine pamoate 25 mg capsule 25 mg PO Q4HR PRN (Reason: spasms) Qty: 30 RF: 5 metoprolol tartrate 50 mg tablet 50 mg PO BID RF: 0 multivitamin tablet 0.5 tab PO BID RF: 0 atorvastatin 20 mg tablet 20 mg PO BEDTIME RF: 0 oxycodone-acetaminophen 10-325 mg tablet 1 tab PO Q6H RF: 0 Narcan 4 mg/actuation spray,non-aerosol 1 spray Intranasal DIRECTED PRN (Reason: Opiate Reversal) RF: 0 Calcium 1 tab PO DAILY RF: 0 Fish Oil 1 cap PO DAILY RF: 0 docusate sodium 100 mg capsule 100 mg PO BEDTIME RF: 0 omeprazole 40 mg Capsule,Delayed Release(Dr/Ec) 40 mg PO DAILY RF: 0 Referrals: Rodriguez Ruth MD [Primary Care Provider] -
[2018-11-27 10:02] VITALS: BP 146/57; PULSE 67; RESP 21; TEMP 36.9; O2SAT 100; BMI 17.5
[2018-11-27 10:14] VITALS: BP 132/48; PULSE 68; RESP 21; O2SAT 100
[2018-11-27] MEDS: ASPIRIN 81 MG TAB 324 MG PO (10:24)
[2018-11-27] MEDS: SODIUM CHLORIDE 0.9% 1,000 ML 150 ML IV (10:24)
[2018-11-27 10:41] LABS: Add Manual Diff / Slide Review NO; Basophils Absolute Auto 100 /uL (0-100); Basophils Percent Auto 0.8 % (0-2); Eosinophils Absolute Auto 500 /uL (0-450); Eosinophils Percent Auto 7.4 % (2-4); Hematocrit 33.2 % (36-46); Hemoglobin 11.1 g/dL (12.0-16.0); Lymphocytes Absolute Auto 800 /uL (1100-4500); Lymphocytes Percent Auto 11.9 % (25-40); Mean Corpuscular HGB Conc 33.3 % (30-36); Mean Corpuscular Hemoglobin 29.9 PG (26-34); Mean Corpuscular Volume 89.7 fL (80-100); Monocytes Absolute Auto 400 /uL (0-900); Monocytes Percent Auto 5.8 % (3-14); Neutrophils Absolute Auto 5200 /uL (1500-7000); Neutrophils Percent Auto 74.1 % (50-75); Platelet Count 321 X10^3/uL (150-400); Red Blood Cell Count 3.71 X10^6/uL (4.0-5.2); Red Cell Distribution Width 16.3 % (11.6-14.8)
[2018-11-27 10:55] LABS: Alanine Aminotransferase 23 IU/L (9-52); Albumin 3.8 g/dL (3.5-5.0); Albumin Globulin Ratio 1.3 (1.0-2.8); Alkaline Phosphatase 107 U/L (38-126); Aspartate Aminotransferase 32 IU/L (14-36); BUN Creatinine Ratio 15.5 (6-22); Bilirubin Total 0.4 mg/dL (0.2-1.3); Blood Urea Nitrogen 17 mg/dL (7-17); Calcium 10.3 mg/dL (8.4-10.2); Carbon Dioxide 26 mmol/L (22-32); Chloride 98 mmol/L (98-107); Creatine Kinase 31 U/L (30-135); Estimated Glomerular Filt Rate 48.6 mL/min (>60); Glucose 124 mg/dL (80-110); HEMOLYSIS < 15 (0-50); Lipase 123 U/L (23-300); Potassium 4.5 mmol/L (3.4-5.1); Sodium 133 mmol/L (137-145); Total Protein 6.8 g/dL (6.3-8.2)
[2018-11-27 11:04] VITALS: BP 120/45; PULSE 64; RESP 18; O2SAT 100
[2018-11-27 11:07] LABS: Troponin I < 0.012 ng/mL (0.01-0.034)
[2018-11-27 11:19] LABS: B Type Natriuretic Peptide 191 (<100)
[2018-11-27 12:17] VITALS: BP 117/46; PULSE 62; RESP 13; TEMP 37.1; O2SAT 99
[2018-11-27 12:46] VITALS: BP 117/46; PULSE 61; RESP 18; O2SAT 100
== END 2018-11-27 12:44 | disposition home or self-care (01) ==
PROVIDERS: Emergency Provider Emergency Medicine; Family Provider Student in an Organized Health Care Education/Training Program; PCP Student in an Organized Health Care Education/Training Program
DX: E16.2 Hypoglycemia, unspecified (principal); R53.1 Weakness; R25.1 Tremor, unspecified; Z95.0 Presence of cardiac pacemaker
CPT/HCPCS: 36591; 71045; 80053; 81003; 82550; 82962; 83690; 83880; 84484; 85025; 93005; 96360; 96361; 99284; 99285

== ENCOUNTER → 2018-11-28 13:34 | Outpatient (CLI) | payer MEDICARE, OTHER, SELFPAY ==
[2018-10-02 09:52] VITALS: BMI 20.1
[2018-11-28 15:48] LABS: Creatinine Urine Random 49.8 mg/dL; Protein (Total) Urine Random 12 mg/dL (0-12); Protein Creatinine Ratio Urine 0.24 GRAM/24H
== END ==
PROVIDERS: Family Provider Student in an Organized Health Care Education/Training Program; PCP Student in an Organized Health Care Education/Training Program; Visit Provider Student in an Organized Health Care Education/Training Program
DX: N05.9 Unspecified nephritic syndrome with unspecified morphologic changes (principal); R80.9 Proteinuria, unspecified
CPT/HCPCS: 82570; 84156

== ENCOUNTER → 2019-04-02 11:53 | Outpatient (CLI) | payer MEDICARE, OTHER, SELFPAY ==
[2018-12-11 11:40] VITALS: BMI 20.1
[2019-04-02 12:39] LABS: Hematocrit 33.4 % (36-46); Hemoglobin 11.4 g/dL (12.0-16.0)
[2019-04-02 13:14] LABS: Blood Urea Nitrogen 23 mg/dL (7-17); Calcium 9.8 mg/dL (8.4-10.2); Carbon Dioxide 27 mmol/L (22-32); Chloride 99 mmol/L (98-107); Estimated Glomerular Filt Rate 54.2 mL/min (>60); Glucose 97 mg/dL (80-110); HEMOLYSIS < 15 (0-50); Potassium 4.4 mmol/L (3.4-5.1); Sodium 135 mmol/L (137-145)
[2019-04-02 16:21] LABS: Creatinine Urine Random 48.5 mg/dL; Protein (Total) Urine Random 12 mg/dL (0-12); Protein Creatinine Ratio Urine 0.24 GRAM/24H
[2019-04-04 17:02] LABS: Parathyroid Hormone Int 147 pg/mL (14-64)
== END ==
PROVIDERS: Family Provider Student in an Organized Health Care Education/Training Program; PCP Student in an Organized Health Care Education/Training Program; Visit Provider Student in an Organized Health Care Education/Training Program
DX: N05.9 Unspecified nephritic syndrome with unspecified morphologic changes (principal); D64.9 Anemia, unspecified; N25.81 Secondary hyperparathyroidism of renal origin; R80.9 Proteinuria, unspecified
CPT/HCPCS: 36415; 80048; 82570; 83970; 84156; 85014; 85018

== ENCOUNTER → 2019-12-07 09:31 | Outpatient (CLI) | payer MEDICARE, OTHER, SELFPAY ==
[2018-12-11 11:40] VITALS: BMI 20.1
[2019-12-07 10:16] LABS: Hematocrit 32.2 % (36-46); Hemoglobin 10.7 g/dL (12.0-16.0)
[2019-12-07 10:36] LABS: BUN Creatinine Ratio 14.8 (6-22); Blood Urea Nitrogen 17 mg/dL (7-17); Calcium 10.1 mg/dL (8.4-10.2); Carbon Dioxide 23 mmol/L (22-32); Chloride 97 mmol/L (98-107); Glucose 108 mg/dL (80-110); HEMOLYSIS < 15 (0-50); Potassium 4.5 mmol/L (3.4-5.1); Sodium 130 mmol/L (137-145)
[2019-12-07 12:48] LABS: Creatinine Urine Random 47.5 mg/dL; Protein (Total) Urine Random 11 mg/dL (0-12); Protein Creatinine Ratio Urine 0.23 GRAM/24H
[2019-12-08 05:08] LABS: Parathyroid Hormone Int 121 pg/mL (15-65)
== END ==
PROVIDERS: Family Provider Student in an Organized Health Care Education/Training Program; PCP Student in an Organized Health Care Education/Training Program; Referring Provider Student in an Organized Health Care Education/Training Program; Visit Provider Student in an Organized Health Care Education/Training Program
DX: N05.9 Unspecified nephritic syndrome with unspecified morphologic changes (principal); D64.9 Anemia, unspecified; N25.81 Secondary hyperparathyroidism of renal origin; R80.9 Proteinuria, unspecified
CPT/HCPCS: 36415; 80048; 82570; 83970; 84156; 85014; 85018

== ENCOUNTER → 2020-01-13 11:32 | Outpatient (CLI) | payer MEDICARE, OTHER, SELFPAY ==
[2018-12-11 11:40] VITALS: BMI 20.1
[2020-01-13 12:39] LABS: BUN Creatinine Ratio 18.3 (6-22); Blood Urea Nitrogen 20 mg/dL (7-17); Calcium 10.8 mg/dL (8.4-10.2); Carbon Dioxide 22 mmol/L (22-32); Chloride 97 mmol/L (98-107); Estimated Glomerular Filt Rate 48.9 mL/min (>60); Glucose 116 mg/dL (80-110); HEMOLYSIS < 15 (0-50); Potassium 4.8 mmol/L (3.4-5.1); Sodium 130 mmol/L (137-145)
[2020-01-13 12:46] LABS: NT-proBNP (BNP-Adult 18+) 1510 pg/mL (<450)
== END ==
PROVIDERS: Family Provider Student in an Organized Health Care Education/Training Program; PCP Student in an Organized Health Care Education/Training Program; Referring Provider Student in an Organized Health Care Education/Training Program; Visit Provider Student in an Organized Health Care Education/Training Program
DX: N05.9 Unspecified nephritic syndrome with unspecified morphologic changes (principal); I50.32 Chronic diastolic (congestive) heart failure
CPT/HCPCS: 36415; 80048; 83880

== ENCOUNTER → 2020-02-02 09:32 | Outpatient (CLI) | payer MEDICARE, OTHER, SELFPAY ==
[2018-12-11 11:40] VITALS: BMI 20.1
[2020-02-02 11:38] LABS: Calcium 10.2 mg/dL (8.4-10.2)
== END ==
PROVIDERS: Family Provider Student in an Organized Health Care Education/Training Program; PCP Student in an Organized Health Care Education/Training Program; Referring Provider Student in an Organized Health Care Education/Training Program; Visit Provider Student in an Organized Health Care Education/Training Program
DX: E83.52 Hypercalcemia (principal)
CPT/HCPCS: 36415; 82310

== ENCOUNTER → 2020-02-12 12:28 | Outpatient (CLI) | payer MEDICARE, OTHER, SELFPAY ==
[2018-12-11 11:40] VITALS: BMI 20.1
[2020-02-12 14:23] LABS: BUN Creatinine Ratio 14.5 (6-22); Blood Urea Nitrogen 17 mg/dL (7-17); Calcium 10.4 mg/dL (8.4-10.2); Carbon Dioxide 25 mmol/L (22-32); Chloride 97 mmol/L (98-107); Estimated Glomerular Filt Rate 45.1 mL/min (>60); Glucose 113 mg/dL (80-110); HEMOLYSIS < 15 (0-50); Potassium 5.8 mmol/L (3.4-5.1); Sodium 128 mmol/L (137-145)
== END ==
PROVIDERS: Family Provider Student in an Organized Health Care Education/Training Program; PCP Student in an Organized Health Care Education/Training Program; Referring Provider Internal Medicine Interventional Cardiology; Visit Provider Internal Medicine Interventional Cardiology
DX: I25.2 Old myocardial infarction (principal)
CPT/HCPCS: 36415; 80048

== ENCOUNTER → 2020-03-17 10:06 | Outpatient (CLI) | payer MEDICARE, OTHER, SELFPAY ==
[2018-12-11 11:40] VITALS: BMI 20.1
== END ==
PROVIDERS: Family Provider Student in an Organized Health Care Education/Training Program; PCP Student in an Organized Health Care Education/Training Program; Referring Provider Student in an Organized Health Care Education/Training Program; Visit Provider Student in an Organized Health Care Education/Training Program
DX: Z13.820 Encounter for screening for osteoporosis (principal); M81.0 Age-related osteoporosis without current pathological fracture; Z78.0 Asymptomatic menopausal state; Z90.722 Acquired absence of ovaries, bilateral
CPT/HCPCS: 77080

== ENCOUNTER → 2020-04-11 09:11 | Outpatient (CLI) | payer MEDICARE, OTHER, SELFPAY ==
[2020-04-01 11:18] VITALS: BMI 20.1
[2020-04-12 07:09] LABS: Ionized Calcium 4.6 mg/dL (4.5-5.6)
== END ==
PROVIDERS: Family Provider Student in an Organized Health Care Education/Training Program; PCP Student in an Organized Health Care Education/Training Program; Referring Provider Student in an Organized Health Care Education/Training Program; Visit Provider Student in an Organized Health Care Education/Training Program
DX: E83.52 Hypercalcemia (principal); M81.0 Age-related osteoporosis without current pathological fracture
CPT/HCPCS: 36415; 82330

== ENCOUNTER → 2020-05-20 09:19 | Outpatient (CLI) | payer MEDICARE, OTHER, SELFPAY ==
[2020-04-01 11:18] VITALS: BMI 20.1
[2020-05-20 10:10] LABS: Hematocrit 28.4 % (36-46); Hemoglobin 9.1 g/dL (12.0-16.0)
[2020-05-20 10:48] LABS: Blood Urea Nitrogen 13 mg/dL (7-17); Calcium 8.5 mg/dL (8.4-10.2); Carbon Dioxide 23 mmol/L (22-32); Chloride 103 mmol/L (98-107); Estimated Glomerular Filt Rate 54.1 mL/min (>60); Glucose 102 mg/dL (80-110); HEMOLYSIS < 15 (0-50); Sodium 131 mmol/L (137-145)
[2020-05-20 11:55] LABS: Protein (Total) Urine Random 16 mg/dL (0-12); Protein Creatinine Ratio Urine 0.36 GRAM/24H
[2020-05-21 07:08] LABS: Parathyroid Hormone Int 446 pg/mL (15-65)
== END ==
PROVIDERS: Family Provider Student in an Organized Health Care Education/Training Program; PCP Student in an Organized Health Care Education/Training Program; Referring Provider Student in an Organized Health Care Education/Training Program; Visit Provider Student in an Organized Health Care Education/Training Program
DX: N05.9 Unspecified nephritic syndrome with unspecified morphologic changes (principal); D64.9 Anemia, unspecified; N25.81 Secondary hyperparathyroidism of renal origin; R80.9 Proteinuria, unspecified
CPT/HCPCS: 36415; 80048; 82570; 83970; 84156; 85014; 85018

== ENCOUNTER → 2020-06-27 08:24 | Outpatient (CLI) | payer MEDICARE, OTHER, SELFPAY ==
[2020-04-01 11:18] VITALS: BMI 20.1
[2020-06-27 09:08] LABS: Hemoglobin 10.9 g/dL (12.0-16.0)
[2020-06-27 09:25] LABS: BUN Creatinine Ratio 11.1 (6-22); Blood Urea Nitrogen 11 mg/dL (7-17); Calcium 9.1 mg/dL (8.4-10.2); Carbon Dioxide 26 mmol/L (22-32); Chloride 102 mmol/L (98-107); Estimated Glomerular Filt Rate 54.7 mL/min (>60); Glucose 110 mg/dL (80-110); HEMOLYSIS < 15 (0-50); Potassium 5.1 mmol/L (3.4-5.1); Sodium 130 mmol/L (137-145)
[2020-06-27 09:53] LABS: HEMOLYSIS < 15 (0-50); Iron 25 ug/dL (37-170)
[2020-06-27 10:01] LABS: Ferritin 24 ng/mL (11-264)
[2020-06-27 10:04] LABS: Percent Iron Saturation 7 % (15-50); Total Iron Binding Capacity 344 ug/dL (265-497); Transferrin 261 mg/dL (206-381)
[2020-06-28 06:05] LABS: Parathyroid Hormone Int 239 pg/mL (15-65)
== END ==
PROVIDERS: Family Provider Student in an Organized Health Care Education/Training Program; PCP Student in an Organized Health Care Education/Training Program; Referring Provider Student in an Organized Health Care Education/Training Program; Visit Provider Student in an Organized Health Care Education/Training Program
DX: N05.9 Unspecified nephritic syndrome with unspecified morphologic changes (principal); D50.0 Iron deficiency anemia secondary to blood loss (chronic); D64.9 Anemia, unspecified; N25.81 Secondary hyperparathyroidism of renal origin
CPT/HCPCS: 36415; 80048; 82728; 83540; 83550; 83970; 85014; 85018

== ENCOUNTER → 2020-10-24 08:40 | Outpatient (CLI) | payer MEDICARE, OTHER, SELFPAY ==
[2020-04-01 11:18] VITALS: BMI 20.1
[2020-10-24 09:53] LABS: Hematocrit 37.2 % (36-46); Hemoglobin 12.5 g/dL (12.0-16.0)
[2020-10-24 10:02] LABS: Creatinine Urine Random 75.4 mg/dL; Protein (Total) Urine Random 26 mg/dL (0-12); Protein Creatinine Ratio Urine 0.34 GRAM/24H
[2020-10-24 10:17] LABS: HEMOLYSIS < 15 (0-50); Iron 58 ug/dL (37-170)
[2020-10-24 10:26] LABS: BUN Creatinine Ratio 11.2 (6-22); Blood Urea Nitrogen 10 mg/dL (7-17); Carbon Dioxide 24 mmol/L (22-32); Chloride 98 mmol/L (98-107); Estimated Glomerular Filt Rate > 60.0 mL/min (>60); Glucose 103 mg/dL (80-110); HEMOLYSIS < 15 (0-50); Sodium 130 mmol/L (137-145)
[2020-10-24 10:27] LABS: Potassium 5.7 mmol/L (3.4-5.1)
[2020-10-24 10:28] LABS: Percent Iron Saturation 20 % (15-50); Total Iron Binding Capacity 297 ug/dL (265-497); Transferrin 251 mg/dL (206-381)
[2020-10-24 10:51] LABS: Ferritin 53 ng/mL (11-264)
[2020-10-25 05:36] LABS: Parathyroid Hormone Int 196 pg/mL (15-65)
== END ==
PROVIDERS: Family Provider Student in an Organized Health Care Education/Training Program; PCP Student in an Organized Health Care Education/Training Program; Referring Provider Student in an Organized Health Care Education/Training Program; Visit Provider Student in an Organized Health Care Education/Training Program
DX: D50.9 Iron deficiency anemia, unspecified (principal); N05.9 Unspecified nephritic syndrome with unspecified morphologic changes; D50.0 Iron deficiency anemia secondary to blood loss (chronic); D64.9 Anemia, unspecified; N25.81 Secondary hyperparathyroidism of renal origin; R80.9 Proteinuria, unspecified
CPT/HCPCS: 36415; 80048; 82570; 82728; 83540; 83550; 83970; 84156; 85014; 85018

== ENCOUNTER → 2020-10-25 08:33 | Outpatient (CLI) | payer MEDICARE, OTHER, SELFPAY ==
[2020-04-01 11:18] VITALS: BMI 20.1
[2020-10-25 09:23] LABS: HEMOLYSIS < 15 (0-50); Potassium 4.3 mmol/L (3.4-5.1)
== END ==
PROVIDERS: Family Provider Student in an Organized Health Care Education/Training Program; PCP Student in an Organized Health Care Education/Training Program; Referring Provider Student in an Organized Health Care Education/Training Program; Visit Provider Student in an Organized Health Care Education/Training Program
DX: E87.5 Hyperkalemia (principal)
CPT/HCPCS: 36415; 84132

== ENCOUNTER → 2021-04-10 08:22 | Outpatient (CLI) | payer MEDICARE, OTHER, SELFPAY ==
[2020-04-01 11:18] VITALS: BMI 20.1
[2021-04-10 09:29] LABS: HEMOLYSIS < 15 (0-50); Iron 82 ug/dL (37-170)
[2021-04-10 09:32] LABS: Blood Urea Nitrogen 18 mg/dL (7-17); Calcium 10.3 mg/dL (8.4-10.2); Carbon Dioxide 26 mmol/L (22-32); Chloride 91 mmol/L (98-107); Estimated Glomerular Filt Rate 43.7 mL/min (>60); Glucose 106 mg/dL (80-110); HEMOLYSIS < 15 (0-50); Hematocrit 36.4 % (36-46); Hemoglobin 12.5 g/dL (12.0-16.0); Potassium 3.8 mmol/L (3.4-5.1); Sodium 123 mmol/L (137-145)
[2021-04-10 09:41] LABS: Percent Iron Saturation 30 % (15-50); Total Iron Binding Capacity 276 ug/dL (265-497); Transferrin 225 mg/dL (206-381)
[2021-04-10 10:06] LABS: Ferritin 94 ng/mL (11-264)
[2021-04-10 10:37] LABS: Creatinine Urine Random 52.9 mg/dL; Protein (Total) Urine Random 14 mg/dL (0-12); Protein Creatinine Ratio Urine 0.26 GRAM/24H
[2021-04-11 08:40] LABS: Parathyroid Hormone Int 41 pg/mL (15-65)
== END ==
PROVIDERS: Family Provider Student in an Organized Health Care Education/Training Program; PCP Student in an Organized Health Care Education/Training Program; Referring Provider Student in an Organized Health Care Education/Training Program; Visit Provider Student in an Organized Health Care Education/Training Program
DX: N05.9 Unspecified nephritic syndrome with unspecified morphologic changes (principal); D50.0 Iron deficiency anemia secondary to blood loss (chronic); D64.9 Anemia, unspecified; N25.81 Secondary hyperparathyroidism of renal origin; R80.9 Proteinuria, unspecified
CPT/HCPCS: 36415; 80048; 82570; 82728; 83540; 83550; 83970; 84156; 85014; 85018

== ENCOUNTER → 2021-04-19 11:39 | Outpatient (CLI) | payer MEDICARE, OTHER, SELFPAY ==
[2020-04-01 11:18] VITALS: BMI 20.1
== END ==
PROVIDERS: Family Provider Student in an Organized Health Care Education/Training Program; PCP Student in an Organized Health Care Education/Training Program; Referring Provider Student in an Organized Health Care Education/Training Program; Visit Provider Student in an Organized Health Care Education/Training Program
DX: Z78.0 Asymptomatic menopausal state (principal); M81.0 Age-related osteoporosis without current pathological fracture; M85.852 Other specified disorders of bone density and structure, left thigh; M85.851 Other specified disorders of bone density and structure, right thigh
CPT/HCPCS: 77080

== ENCOUNTER → 2021-04-21 08:52 | Outpatient (CLI) | payer MEDICARE, OTHER, SELFPAY ==
[2020-04-01 11:18] VITALS: BMI 20.1
[2021-04-21 11:35] LABS: BUN Creatinine Ratio 11.2 (6-22); Blood Urea Nitrogen 12 mg/dL (7-17); Calcium 10.4 mg/dL (8.4-10.2); Carbon Dioxide 28 mmol/L (22-32); Chloride 102 mmol/L (98-107); Estimated Glomerular Filt Rate 49.9 mL/min (>60); Glucose 87 mg/dL (80-110); HEMOLYSIS < 15 (0-50); Potassium 4.5 mmol/L (3.4-5.1); Sodium 133 mmol/L (137-145)
[2021-04-21 11:43] LABS: NT-proBNP (BNP-Adult 18+) 2680 pg/mL (<450)
[2021-04-21 12:01] LABS: Thyroid Stimulating Hormone 0.749 uIU/mL (0.47-4.68)
[2021-04-21 14:21] LABS: Sodium Urine Random 49 mmol/L (30-90)
[2021-04-24 15:44] LABS: Osmolality, Serum 280 mOsmol/kg (280-301)
[2021-04-24 15:44] LABS: Osmolality Urine 205 mOsmol/kg (.)
== END ==
PROVIDERS: Family Provider Student in an Organized Health Care Education/Training Program; PCP Student in an Organized Health Care Education/Training Program; Referring Provider Student in an Organized Health Care Education/Training Program; Visit Provider Student in an Organized Health Care Education/Training Program
DX: N05.9 Unspecified nephritic syndrome with unspecified morphologic changes (principal); I50.32 Chronic diastolic (congestive) heart failure; E78.1 Pure hyperglyceridemia; E87.1 Hypo-osmolality and hyponatremia; E03.9 Hypothyroidism, unspecified
CPT/HCPCS: 36415; 80048; 82533; 83880; 83930; 83935; 84300; 84443

== ENCOUNTER → 2021-05-16 11:27 | Outpatient (CLI) | payer MEDICARE, OTHER, SELFPAY ==
[2020-04-01 11:18] VITALS: BMI 20.1
[2021-05-16 13:12] LABS: BUN Creatinine Ratio 13.8 (6-22); Blood Urea Nitrogen 13 mg/dL (7-17); Carbon Dioxide 26 mmol/L (22-32); Chloride 99 mmol/L (98-107); Estimated Glomerular Filt Rate 57.9 mL/min (>60); Glucose 106 mg/dL (80-110); HEMOLYSIS < 15 (0-50); Potassium 4.9 mmol/L (3.4-5.1); Sodium 132 mmol/L (137-145)
[2021-05-16 15:44] LABS: Cholesterol 185 mg/dL (140-199); HDL Cholesterol 103 mg/dL (40-60); LDL Cholesterol Calculated 57 mg/dL (<100); Triglycerides 125 mg/dL (35-150)
== END ==
PROVIDERS: Family Provider Student in an Organized Health Care Education/Training Program; PCP Student in an Organized Health Care Education/Training Program; Referring Provider Internal Medicine Interventional Cardiology; Visit Provider Internal Medicine Interventional Cardiology
DX: E78.5 Hyperlipidemia, unspecified (principal); I25.2 Old myocardial infarction
CPT/HCPCS: 36415; 80048; 80061

== ENCOUNTER → 2021-06-24 10:13 | Outpatient (CLI) | payer MEDICARE, OTHER, SELFPAY ==
[2020-04-01 11:18] VITALS: BMI 20.1
[2021-06-24 12:13] LABS: BUN Creatinine Ratio 16.2 (6-22); Blood Urea Nitrogen 16 mg/dL (7-17); Calcium 9.9 mg/dL (8.4-10.2); Carbon Dioxide 25 mmol/L (22-32); Chloride 96 mmol/L (98-107); Estimated Glomerular Filt Rate 54.5 mL/min (>60); Glucose 99 mg/dL (80-110); HEMOLYSIS < 15 (0-50); Potassium 4.7 mmol/L (3.4-5.1); Sodium 130 mmol/L (137-145)
[2021-06-25 08:52] LABS: Parathyroid Hormone Int 148 pg/mL (15-65)
[2021-06-26 14:09] LABS: Albumin 3.5 g/dL (2.9-4.4); Alpha-1 Globulin, Ur 3.1 % (.); Alpha-1-Globulin 0.3 g/dL (0.0-0.4); Alpha-2-Globulin 0.8 g/dL (0.4-1.0); Beta Globulin, Ur 11.7 % (.); Gamma Globulin 1.1 g/dL (0.4-1.8); Gamma Globulin, Ur 3.3 % (.); Globulin Total 3.3 g/dL (2.2-3.9); Immunoglobulin A, Serum 335 mg/dL (64-422); Immunoglobulin G,Serum 930 mg/dL (586-1602); Immunoglobulin M, Serum 57 mg/dL (26-217); M-Spike % Not Observed % (Not Observed); Protein, Total 6.8 g/dL (6.0-8.5); Urine Total Protein 23.5 mg/dL (Not Estab.)
== END ==
PROVIDERS: Family Provider Student in an Organized Health Care Education/Training Program; PCP Student in an Organized Health Care Education/Training Program; Referring Provider Student in an Organized Health Care Education/Training Program; Visit Provider Student in an Organized Health Care Education/Training Program
DX: N05.9 Unspecified nephritic syndrome with unspecified morphologic changes (principal); D47.2 Monoclonal gammopathy; N25.81 Secondary hyperparathyroidism of renal origin
CPT/HCPCS: 36415; 80048; 82784; 83970; 84155; 84156; 84165; 84166; 86334; 86335

== ENCOUNTER → 2021-11-03 09:38 | Outpatient (CLI) | payer MEDICARE, OTHER, SELFPAY ==
[2020-04-01 11:18] VITALS: BMI 20.1
[2021-11-03 10:39] LABS: Hematocrit 37.3 % (36-46); Hemoglobin 12.9 g/dL (12.0-16.0)
[2021-11-03 11:02] LABS: BUN Creatinine Ratio 13.2 (6-22); Blood Urea Nitrogen 12 mg/dL (7-17); Calcium 9.4 mg/dL (8.4-10.2); Carbon Dioxide 24 mmol/L (22-32); Chloride 99 mmol/L (98-107); Estimated Glomerular Filt Rate 59.9 mL/min (>60); Glucose 98 mg/dL (80-110); HEMOLYSIS < 15 (0-50); Potassium 4.8 mmol/L (3.4-5.1); Sodium 130 mmol/L (137-145)
[2021-11-03 11:23] LABS: Creatinine Urine Random 73.4 mg/dL; Protein (Total) Urine Random 35 mg/dL (0-12); Protein Creatinine Ratio Urine 0.47 GRAM/24H
[2021-11-04 13:10] LABS: Parathyroid Hormone Int 220 pg/mL (15-65)
== END ==
PROVIDERS: Family Provider Student in an Organized Health Care Education/Training Program; PCP Student in an Organized Health Care Education/Training Program; Referring Provider Student in an Organized Health Care Education/Training Program; Visit Provider Student in an Organized Health Care Education/Training Program
DX: N05.9 Unspecified nephritic syndrome with unspecified morphologic changes (principal); R80.9 Proteinuria, unspecified; D64.9 Anemia, unspecified; N25.81 Secondary hyperparathyroidism of renal origin
CPT/HCPCS: 36415; 80048; 82570; 83970; 84156; 85014; 85018

== ENCOUNTER → 2022-05-16 11:19 | Outpatient (CLI) | payer MEDICARE, OTHER, SELFPAY ==
[2020-04-01 11:18] VITALS: BMI 20.1
[2022-05-16 13:28] LABS: Alanine Aminotransferase 12 IU/L (<35); Blood Urea Nitrogen 15 mg/dL (7-17); Calcium 10.5 mg/dL (8.4-10.2); Carbon Dioxide 27 mmol/L (22-32); Chloride 97 mmol/L (98-107); Estimated Glomerular Filt Rate > 60 mL/min (>60); Glucose 104 mg/dL (80-110); HEMOLYSIS < 15 (0-50); Potassium 4.8 mmol/L (3.4-5.1); Sodium 133 mmol/L (137-145)
== END ==
PROVIDERS: Family Provider Student in an Organized Health Care Education/Training Program; PCP Student in an Organized Health Care Education/Training Program; Referring Provider Internal Medicine Interventional Cardiology; Visit Provider Internal Medicine Interventional Cardiology
DX: I25.2 Old myocardial infarction (principal)
CPT/HCPCS: 36415; 80048; 84460

== ENCOUNTER → 2022-05-30 11:02 | Outpatient (CLI) | payer MEDICARE, OTHER, SELFPAY ==
[2020-04-01 11:18] VITALS: BMI 20.1
[2022-05-30 12:02] LABS: Hematocrit 36.7 % (36-46); Hemoglobin 12.4 g/dL (12.0-16.0)
[2022-05-30 12:44] LABS: BUN Creatinine Ratio 16.1 (6-22); Blood Urea Nitrogen 15 mg/dL (7-17); Calcium 10.2 mg/dL (8.4-10.2); Carbon Dioxide 26 mmol/L (22-32); Chloride 97 mmol/L (98-107); Estimated Glomerular Filt Rate > 60 mL/min (>60); Glucose 109 mg/dL (80-110); HEMOLYSIS < 15 (0-50); Potassium 5.1 mmol/L (3.4-5.1); Sodium 130 mmol/L (137-145)
[2022-05-30 16:42] LABS: Creatinine Urine Random 68.2 mg/dL; Protein (Total) Urine Random 39 mg/dL (0-12); Protein Creatinine Ratio Urine 0.57 GRAM/24H
[2022-06-01 07:19] LABS: Parathyroid Hormone Int 94 pg/mL (15-65)
== END ==
PROVIDERS: Family Provider Student in an Organized Health Care Education/Training Program; PCP Student in an Organized Health Care Education/Training Program; Referring Provider Student in an Organized Health Care Education/Training Program; Visit Provider Student in an Organized Health Care Education/Training Program
DX: N05.9 Unspecified nephritic syndrome with unspecified morphologic changes (principal); D64.9 Anemia, unspecified; N25.81 Secondary hyperparathyroidism of renal origin; R80.9 Proteinuria, unspecified
CPT/HCPCS: 36415; 80048; 82570; 83970; 84156; 85014; 85018

== ENCOUNTER → 2022-12-31 08:58 | Outpatient (CLI) | payer MEDICARE, OTHER, SELFPAY ==
[2020-04-01 11:18] VITALS: BMI 20.1
[2022-12-31 10:09] LABS: Hematocrit 34.6 % (36-46); Hemoglobin 11.9 g/dL (12.0-16.0)
[2022-12-31 10:19] LABS: BUN Creatinine Ratio 14.9 (6-22); Blood Urea Nitrogen 15 mg/dL (7-17); Calcium 10.3 mg/dL (8.4-10.2); Carbon Dioxide 27 mmol/L (22-32); Chloride 100 mmol/L (98-107); Estimated Glomerular Filt Rate 57 mL/min (>60); Glucose 104 mg/dL (80-110); HEMOLYSIS < 15 (0-50); Potassium 4.5 mmol/L (3.4-5.1); Sodium 133 mmol/L (137-145)
[2022-12-31 11:38] LABS: Creatinine Urine Random 72.8 mg/dL; Protein (Total) Urine Random 30 mg/dL (0-12); Protein Creatinine Ratio Urine 0.41 GRAM/24H
[2023-01-02 08:10] LABS: Parathyroid Hormone Int 72 pg/mL (15-65)
== END ==
PROVIDERS: Family Provider Student in an Organized Health Care Education/Training Program; PCP Student in an Organized Health Care Education/Training Program; Referring Provider Student in an Organized Health Care Education/Training Program; Visit Provider Student in an Organized Health Care Education/Training Program
DX: N05.9 Unspecified nephritic syndrome with unspecified morphologic changes (principal); D64.9 Anemia, unspecified; R80.9 Proteinuria, unspecified; N25.81 Secondary hyperparathyroidism of renal origin
CPT/HCPCS: 36415; 80048; 82570; 83970; 84156; 85014; 85018

== ENCOUNTER → 2023-02-01 10:48 | Outpatient (CLI) | payer MEDICARE, OTHER, SELFPAY ==
[2020-04-01 11:18] VITALS: BMI 20.1
[2023-02-01 12:15] LABS: BUN Creatinine Ratio 12.6 (6-22); Blood Urea Nitrogen 14 mg/dL (7-17); Carbon Dioxide 27 mmol/L (22-32); Chloride 97 mmol/L (98-107); Estimated Glomerular Filt Rate 51 mL/min (>60); Glucose 102 mg/dL (80-110); HEMOLYSIS < 15 (0-50); Potassium 5.3 mmol/L (3.4-5.1); Sodium 129 mmol/L (137-145)
[2023-02-02 08:39] LABS: Parathyroid Hormone Int 106 pg/mL (15-65)
== END ==
PROVIDERS: Family Provider Student in an Organized Health Care Education/Training Program; PCP Student in an Organized Health Care Education/Training Program; Referring Provider Student in an Organized Health Care Education/Training Program; Visit Provider Student in an Organized Health Care Education/Training Program
DX: N05.9 Unspecified nephritic syndrome with unspecified morphologic changes (principal); N25.81 Secondary hyperparathyroidism of renal origin
CPT/HCPCS: 36415; 80048; 83970

== ENCOUNTER → 2023-02-06 09:39 | Outpatient (CLI) | payer MEDICARE, OTHER, SELFPAY ==
[2020-04-01 11:18] VITALS: BMI 20.1
[2023-02-06 11:19] LABS: HEMOLYSIS < 15 (0-50)
[2023-02-06 11:21] LABS: Potassium 5.9 mmol/L (3.4-5.1)
== END ==
PROVIDERS: Family Provider Student in an Organized Health Care Education/Training Program; Referring Provider Student in an Organized Health Care Education/Training Program; Visit Provider Student in an Organized Health Care Education/Training Program
DX: E87.5 Hyperkalemia (principal)
CPT/HCPCS: 36415; 84132

== ENCOUNTER → 2023-02-12 09:42 | Outpatient (CLI) | payer MEDICARE, OTHER, SELFPAY ==
[2020-04-01 11:18] VITALS: BMI 20.1
[2023-02-12 10:47] LABS: HEMOLYSIS < 15 (0-50); Potassium 2.8 mmol/L (3.4-5.1)
== END ==
PROVIDERS: Family Provider Student in an Organized Health Care Education/Training Program; Referring Provider Student in an Organized Health Care Education/Training Program; Visit Provider Student in an Organized Health Care Education/Training Program
DX: E87.5 Hyperkalemia (principal)
CPT/HCPCS: 36415; 84132

== ENCOUNTER → 2023-02-15 09:32 | Outpatient (CLI) | payer MEDICARE, OTHER, SELFPAY ==
[2020-04-01 11:18] VITALS: BMI 20.1
[2023-02-15 10:38] LABS: HEMOLYSIS < 15 (0-50); Potassium 2.9 mmol/L (3.4-5.1)
== END ==
PROVIDERS: Family Provider Student in an Organized Health Care Education/Training Program; PCP Pediatrics; Referring Provider Student in an Organized Health Care Education/Training Program; Visit Provider Student in an Organized Health Care Education/Training Program
DX: E87.5 Hyperkalemia (principal)
CPT/HCPCS: 36415; 84132

== ENCOUNTER → 2023-02-18 09:25 | Outpatient (CLI) | payer MEDICARE, OTHER, SELFPAY ==
[2020-04-01 11:18] VITALS: BMI 20.1
[2023-02-18 10:43] LABS: HEMOLYSIS < 15 (0-50); Potassium 3.6 mmol/L (3.4-5.1)
== END ==
PROVIDERS: Family Provider Student in an Organized Health Care Education/Training Program; PCP Pediatrics; Referring Provider Student in an Organized Health Care Education/Training Program; Visit Provider Student in an Organized Health Care Education/Training Program
DX: E87.5 Hyperkalemia (principal)
CPT/HCPCS: 36415; 84132

== ENCOUNTER → 2023-03-15 09:12 | Outpatient (CLI) | payer MEDICARE, OTHER, SELFPAY ==
[2020-04-01 11:18] VITALS: BMI 20.1
[2023-03-15 09:58] LABS: Hematocrit 33.5 % (36-46); Hemoglobin 11.6 g/dL (12.0-16.0)
[2023-03-15 10:31] LABS: Alanine Aminotransferase 15 IU/L (<35); Albumin Globulin Ratio 1.3 (1.0-2.8); Alkaline Phosphatase 90 U/L (38-126); Aspartate Aminotransferase 29 IU/L (14-36); Bilirubin Total 0.5 mg/dL (0.2-1.3); Blood Urea Nitrogen 12 mg/dL (7-17); Calcium 9.9 mg/dL (8.4-10.2); Carbon Dioxide 27 mmol/L (22-32); Chloride 98 mmol/L (98-107); Cholesterol 173 mg/dL (140-199); Estimated Glomerular Filt Rate 58 mL/min (>60); Glucose 106 mg/dL (80-110); HDL Cholesterol 94 mg/dL (40-60); HEMOLYSIS < 15 (0-50); LDL Cholesterol Calculated 56 mg/dL (<100); Magnesium 1.8 mg/dL (1.6-2.3); Potassium 4.6 mmol/L (3.4-5.1); Sodium 130 mmol/L (137-145); Triglycerides 113 mg/dL (35-150)
[2023-03-15 10:40] LABS: Vitamin D 25 Hydroxy (D3) 38.1 ng/mL (30.0-100.0)
[2023-03-15 10:53] LABS: Creatinine Urine Random 76.1 mg/dL; Protein (Total) Urine Random 73 mg/dL (0-12); Protein Creatinine Ratio Urine 0.95 GRAM/24H
[2023-03-15 10:54] LABS: TSH w/ Reflex to FT4 0.58 uIU/mL (0.47-4.68)
[2023-03-17 07:07] LABS: Parathyroid Hormone Int 94 pg/mL (15-65)
== END ==
PROVIDERS: Family Provider Student in an Organized Health Care Education/Training Program; PCP Pediatrics; Referring Provider Student in an Organized Health Care Education/Training Program; Visit Provider Student in an Organized Health Care Education/Training Program
DX: N25.81 Secondary hyperparathyroidism of renal origin (principal); D64.9 Anemia, unspecified; N05.9 Unspecified nephritic syndrome with unspecified morphologic changes; R80.9 Proteinuria, unspecified; E55.9 Vitamin D deficiency, unspecified; E61.1 Iron deficiency; E78.2 Mixed hyperlipidemia; I10 Essential (primary) hypertension; M81.0 Age-related osteoporosis without current pathological fracture
CPT/HCPCS: 36415; 80053; 80061; 82306; 82570; 83735; 83970; 84156; 84443; 85014; 85018

== ENCOUNTER → 2023-04-26 08:51 | Outpatient (CLI) | payer MEDICARE, OTHER, SELFPAY ==
[2020-04-01 11:18] VITALS: BMI 20.1
[2023-04-26 09:48] LABS: Alanine Aminotransferase 14 IU/L (<35); Albumin 3.9 g/dL (3.5-5.0); Albumin Globulin Ratio 1.2 (1.0-2.8); Alkaline Phosphatase 73 U/L (38-126); Aspartate Aminotransferase 28 IU/L (14-36); BUN Creatinine Ratio 19.4 (6-22); Bilirubin Total 0.7 mg/dL (0.2-1.3); Blood Urea Nitrogen 20 mg/dL (7-17); Calcium 10.5 mg/dL (8.4-10.2); Carbon Dioxide 28 mmol/L (22-32); Chloride 98 mmol/L (98-107); Cholesterol 193 mg/dL (140-199); Estimated Glomerular Filt Rate 56 mL/min (>60); Globulin 3.2 g/dL (1.7-4.1); Glucose 106 mg/dL (80-110); HDL Cholesterol 108 mg/dL (40-60); LDL Cholesterol Calculated 67 mg/dL (<100); Sodium 130 mmol/L (137-145); Total Protein 7.1 g/dL (6.3-8.2); Triglycerides 89 mg/dL (35-150)
[2023-04-26 09:50] LABS: HEMOLYSIS 56 (0-50)
[2023-04-26 10:19] LABS: Thyroid Stimulating Hormone 1.14 uIU/mL (0.47-4.68)
== END ==
PROVIDERS: Family Provider Student in an Organized Health Care Education/Training Program; PCP Pediatrics; Referring Provider Internal Medicine Interventional Cardiology; Visit Provider Internal Medicine Interventional Cardiology
DX: I25.2 Old myocardial infarction (principal); I48.91 Unspecified atrial fibrillation
CPT/HCPCS: 36415; 80053; 80061; 84443

== ENCOUNTER → 2023-09-16 14:40 | Outpatient (CLI) | payer MEDICARE, OTHER, SELFPAY ==
[2020-04-01 11:18] VITALS: BMI 20.1
[2023-09-16 15:13] LABS: Hematocrit 36.1 % (36-46); Hemoglobin 12.3 g/dL (12.0-16.0)
[2023-09-16 15:46] LABS: NT-proBNP (BNP-Adult 18+) 3200 pg/mL (<450)
[2023-09-16 16:19] LABS: Creatinine Urine Random 101.9 mg/dL; Protein (Total) Urine Random 49 mg/dL (0-12); Protein Creatinine Ratio Urine 0.48 GRAM/24H
[2023-09-18 08:35] LABS: Parathyroid Hormone Int 125 pg/mL (15-65)
== END ==
PROVIDERS: Family Provider Student in an Organized Health Care Education/Training Program; PCP Pediatrics; Referring Provider Student in an Organized Health Care Education/Training Program; Visit Provider Student in an Organized Health Care Education/Training Program
DX: I50.32 Chronic diastolic (congestive) heart failure (principal); D70.9 Neutropenia, unspecified; D63.1 Anemia in chronic kidney disease; N25.81 Secondary hyperparathyroidism of renal origin; R80.9 Proteinuria, unspecified
CPT/HCPCS: 36415; 82570; 83880; 83970; 84156; 85014; 85018

== ENCOUNTER → 2023-09-17 14:24 | Outpatient (CLI) | payer MEDICARE, OTHER, SELFPAY ==
[2020-04-01 11:18] VITALS: BMI 20.1
[2023-09-17 16:38] LABS: Blood Urea Nitrogen 15 mg/dL (7-17); Calcium 10.3 mg/dL (8.4-10.2); Carbon Dioxide 24 mmol/L (22-32); Chloride 103 mmol/L (98-107); Estimated Glomerular Filt Rate 57 mL/min (>60); Glucose 105 mg/dL (80-110); HEMOLYSIS < 15 (0-50); Potassium 4.6 mmol/L (3.4-5.1); Sodium 135 mmol/L (137-145)
== END ==
PROVIDERS: Family Provider Student in an Organized Health Care Education/Training Program; PCP Pediatrics; Referring Provider Student in an Organized Health Care Education/Training Program; Visit Provider Student in an Organized Health Care Education/Training Program
DX: N05.9 Unspecified nephritic syndrome with unspecified morphologic changes (principal)
CPT/HCPCS: 36415; 80048

== ENCOUNTER → 2024-02-24 10:53 | Outpatient (CLI) | payer MEDICARE, OTHER, SELFPAY ==
[2020-04-01 11:18] VITALS: BMI 20.1
--- NOTE | 2024-02-24 10:54 | DI.RAD.S_ITS ---
PROCEDURE: XR DEXA AXIAL SKELETON INDICATIONS: asymptomatic age related postmenopausal state COMPARISON: [facility], , XR DEXA AXIAL SKELETON, 04/19/2021, 12:09. [facility], CR, XR DEXA AXIAL SKELETON, 03/17/2020, 10:41. FINDINGS: Left Hip: Bone mineral density 0.590 g/cm2, T score -2.9, previously -2.6. Left Femoral Neck: Bone mineral density 0.5 and g/cm2, T score -2.3, previously -2.5. Right Hip: Bone mineral density 0.627 g/cm2, T score -2.6, previously -2.3. Right Femoral Neck: Bone mineral density 0.567 g/cm2, T score -2.5, stable. Left Forearm: Bone mineral density is 0.506 g/cm2, T score -3.1, osteoporosis. Fracture Risk Calculation (when applicable): Not reported due to osteoporosis diagnosis. (T score greater or equal to -1.0 to: NORMAL) (T score from -1.1 to -2.4: OSTEOPENIA) (T score less than or equal to -2.5: OSTEOPOROSIS) IMPRESSION: Osteoporosis. Follow-up guidelines as follows: Osteoporosis: Consider a repeat DEXA and Vertebral Fracture Assessment (VFA) exam in 2 years or sooner if medically necessary, to reassess this patient's status. Osteopenia: Consider a repeat DEXA in 2-3 years to reassess this patient's status, or if there is a new clinical indication. Normal: Consider a repeat DEXA in 5 years or sooner, or if there is a new clinical indication. All treatment decisions require clinical judgment and consideration of individual patient factors, including patient preferences, comorbidities, previous drug use, risk factors not captured in the FRAX model (e.g., frailty, falls, vitamin D deficiency, increased bone turnover, interval significant decline in bone density ) and possible under- or over-estimation of fracture risk by FRAX. In addition, the NOF Guide recommends that FDA-approved medical therapies be considered in postmenopausal women and men age >= 50 years with a: * Hip or vertebral (clinical or morphometric) fracture * T-score of <=-2.5 at the spine or hip * Ten-year fracture probability by FRAX of >= 3% for hip fracture or >=20% for major osteoporotic fracture. People with diagnosed cases of osteoporosis or at high risk for fracture should have regular bone mineral density tests. For patients eligible for Medicare, routine testing is allowed once every 2 years. The testing frequency can be increased to one year for patients who have rapidly progressing disease, those who are receiving or discontinuing medical therapy to restore bone mass, or have additional risk factors. Dictated by: Isra Garzon M.D. on 02/24/2024 at 11:57 Approved by: Isra Garzon M.D. on 02/24/2024 at 11:58
== END ==
PROVIDERS: Family Provider Student in an Organized Health Care Education/Training Program; PCP Family Medicine; Referring Provider Family Medicine; Visit Provider Family Medicine
DX: M81.0 Age-related osteoporosis without current pathological fracture (principal); Z78.0 Asymptomatic menopausal state
CPT/HCPCS: 77080; 77081

== ENCOUNTER → 2024-03-04 08:52 | Outpatient (CLI) | payer MEDICARE, OTHER, SELFPAY ==
[2020-04-01 11:18] VITALS: BMI 20.1
--- NOTE | 2024-03-04 08:53 | DI.US.S_ITS ---
PROCEDURE: US SOFT TISSUE HEAD AND NECK INDICATIONS: hard mass swelling over left parotid area TECHNIQUE: Real-time scanning was performed of the neck region of interest, with image documentation. COMPARISON: None. Findings and impression: Adjacent to the left mandible, the area of clinical concern measures 4.1 x 4 x 1.4 centimeters with ill-defined edema. Underlying soft tissue lesion is also possible. There are adjacent prominent lymph nodes which may be reactive measuring up to 6 x 5 millimeters. Attention on follow-up is recommended. If this persists or enlarges, consider sampling. Further evaluation could also be obtained with CT. Dictated by: Gunnar Gooden M.D. on 03/04/2024 at 9:47 Approved by: Gunnar Gooden M.D. on 03/04/2024 at 9:48
== END ==
PROVIDERS: PCP Family Medicine; Referring Provider Family Medicine; Visit Provider Family Medicine
DX: M79.89 Other specified soft tissue disorders (principal)
CPT/HCPCS: 76536

== ENCOUNTER → 2024-03-06 14:58 | Outpatient (CLI) | payer MEDICARE, OTHER, SELFPAY ==
[2020-04-01 11:18] VITALS: BMI 20.1
--- NOTE | 2024-03-06 15:02 | DI.CT.S_ITS ---
PROCEDURE: CT SOFT TISSUE NECK W CON INDICATIONS: Persistent facial edema; soft tissue lesion TECHNIQUE: After the administration of intravenous contrast, 3.0 mm axial sections acquired from the sella to the aortic arch. Additional oblique axial 3.0 mm sections acquired through the pharynx. 3 mm thick coronal and sagittal reformats were generated. For radiation dose reduction, the following was used: automated exposure control. COMPARISON: None. FINDINGS: Skull Base: The visualized intracranial contents, skull, and orbits are unremarkable. Visualized paranasal sinuses are clear. Bilateral intraocular lens replacements noted. Pharynx and Larynx: The nasopharyngeal airway is patent and midline. Parapharyngeal soft tissues including palatine tonsils and base of the tongue are normal. Retropharyngeal space unremarkable. Normal appearance of the false and true vocal cords. Muscles and Fascial Planes: Fascial planes are well maintained. No abscess or mass lesion. Lymph Nodes: No evidence of adenopathy. Vasculature: Unremarkable. Submandibular and Parotid Glands: Normal in size and attenuation. Thyroid: Unremarkable. No enlarged or calcified nodules. Bones: Degenerative disc space narrowing and hypertrophic arthropathy noted in the cervical spine associated with a degenerative spondylolisthesis at C2-3 and C4-5 Lung Apices: The visualized lung apices are clear. Left-sided dual-chamber pacemaker noted. Atherosclerotic vascular calcification in the aorta IMPRESSION: Chronic degenerative changes detailed above. No evidence of mass lesion or adenopathy. Approved by: Dorian Redding M.D. on 03/09/2024 at 13:13
[2024-03-06 15:43] LABS: Estimated Glomerular Filt Rate 57 mL/min (>60)
== END ==
PROVIDERS: PCP Family Medicine; Referring Provider Family Medicine; Visit Provider Family Medicine
DX: K11.8 Other diseases of salivary glands (principal); R60.0 Localized edema; N18.31 Chronic kidney disease, stage 3a; M43.12 Spondylolisthesis, cervical region; M47.812 Spondylosis without myelopathy or radiculopathy, cervical region
CPT/HCPCS: 36415; 70491; 82565; Q9967

== ENCOUNTER → 2024-03-17 15:07 | Outpatient (CLI) | payer MEDICARE, OTHER, SELFPAY ==
[2020-04-01 11:18] VITALS: BMI 20.1
--- NOTE | 2024-03-17 15:09 | DI.RAD.S_ITS ---
PROCEDURE: XR LUMBAR SPINE 2-3V INDICATIONS: Back pain from injury TECHNIQUE: 3 views of the lumbar spine were acquired. COMPARISON: [facility], CR, XR LUMBAR SPINE 2 OR 3 VIEWS, 10/16/2018, 14:48. [facility], CR, XR LUMBAR SPINE 2 OR 3 VIEWS, 02/19/2024, 13:06. [facility], CR, XR LUMBAR SPINE MIN 4V, 10/02/2018, 12:51. [facility], CR, XR LUMBAR SPINE 2-3V, 03/13/2018, 15:09. FINDINGS: Bones: 5 [id number] vertebrae are present. Extensive prior spine surgery has been performed with posterior bilateral fixation rods and transverse pedicle screws crossing from L2 through L5. Kyphoplasty bone-cement noted at L1. L5-S1 disc prosthesis noted on lateral view imaging does not appear to have changed. There is a new near severe T12 vertebral body compression fracture best seen on the lateral view with near vertebra plana morphology. Slight focal kyphosis is associated. No suspicious bony lesions. Soft tissues: Overlying bowel gas pattern is normal. No suspicious soft tissue calcifications. IMPRESSION: Extensive prior spine interventions. New finding of near vertebra plana T12 compression fracture not present on prior plain film imaging 10/02/18 and 10/16/18. Dictated by: Tanner Rosales M.D. on 03/18/2024 at 6:05 Approved by: Tanner Rosales M.D. on 03/18/2024 at 6:11
== END ==
LOC: RAD 15:08
PROVIDERS: PCP Family Medicine; Referring Provider Family Medicine; Visit Provider Family Medicine
DX: M48.54XA Collapsed vertebra, not elsewhere classified, thoracic region, initial encounter for fracture (principal); M54.50 Low back pain, unspecified; G89.11 Acute pain due to trauma; Z98.1 Arthrodesis status
CPT/HCPCS: 72100

== ENCOUNTER → 2024-07-16 16:00 | Outpatient (CLI) | payer MEDICARE, OTHER, SELFPAY ==
[2020-04-01 11:18] VITALS: BMI 20.1
[2024-07-16 17:27] LABS: Add Manual Diff / Slide Review NO; Basophils Absolute Auto 100 /uL (0-100); Basophils Percent Auto 0.9 % (0-2); Eosinophils Absolute Auto 100 /uL (0-450); Eosinophils Percent Auto 1.8 % (2-4); Hematocrit 30.4 % (36-46); Hemoglobin 10.3 g/dL (12.0-16.0); Lymphocytes Absolute Auto 1200 /uL (1100-4500); Lymphocytes Percent Auto 20.8 % (25-40); Mean Corpuscular HGB Conc 34.1 % (30-36); Mean Corpuscular Hemoglobin 35.2 PG (26-34); Mean Corpuscular Volume 103.3 fL (80-100); Monocytes Absolute Auto 600 /uL (0-900); Monocytes Percent Auto 11.3 % (3-14); Neutrophils Absolute Auto 3700 /uL (1500-7000); Neutrophils Percent Auto 65.2 % (50-75); Platelet Count 262 X10^3/uL (150-400); Red Blood Cell Count 2.94 X10^6/uL (4.0-5.2); Red Cell Distribution Width 14.8 % (11.6-14.8); White Blood Cell Count 5.7 X10^3/uL (4.5-11.0)
[2024-07-16 18:06] LABS: Alanine Aminotransferase 22 IU/L (<35); Albumin 2.9 g/dL (3.5-5.0); Alkaline Phosphatase 88 U/L (38-126); Aspartate Aminotransferase 34 IU/L (14-36); BUN Creatinine Ratio 24.7 (6-22); Bilirubin Total 0.4 mg/dL (0.2-1.3); Blood Urea Nitrogen 23 mg/dL (7-17); Calcium 10.2 mg/dL (8.4-10.2); Carbon Dioxide 26 mmol/L (22-32); Chloride 101 mmol/L (98-107); Estimated Glomerular Filt Rate > 60 mL/min (>60); Glucose 106 mg/dL (80-110); HEMOLYSIS < 15 (0-50); Sodium 128 mmol/L (137-145); Total Protein 5.9 g/dL (6.3-8.2)
[2024-07-16 18:38] LABS: TSH w/ Reflex to FT4 1.28 uIU/mL (0.47-4.68)
== END ==
LOC: LAB 16:01
PROVIDERS: PCP Family Medicine; Referring Provider Physician Assistant; Visit Provider Physician Assistant
DX: R63.4 Abnormal weight loss (principal); E83.52 Hypercalcemia
CPT/HCPCS: 36415; 80053; 82310; 83970; 84155; 84165; 84443; 85025